=== PATIENT | female | born 1950 | race Caucasian/White ===

== ENCOUNTER 2016-11-30 08:06 | Emergency (ER) | payer MEDICARE ==
[~2016-11-30] VITALS: Ht 157.5 cm; Wt 44.5 kg
[2016-11-30 08:19] VITALS: BP 138/68
[2016-11-30] MEDS ORDERED: SULF1TAB24 PO (08:37)
--- NOTE | 2016-11-30 08:37 | PHYS DOC ---
Past History Past Medical History: Diabetes Alcohol Use: None Drug Use: None Adult General Chief Complaint Chief Complaint: TOE PROBLEM HPI HPI Patient is a 66-year-old female diabetic who presents with an infection of the right third toe. The patient was cutting her toenails last week and she accidentally cut into the skin on her toe. It has become red. Patient states she lost the tip of her left toe 2 or 3 years ago after an infection and she wants to avoid that. Patient does have an appointment to see the biology manager on December 11. Patient denies fever or chills, denies vomiting. She feels fine except for her toe. Allergic to penicillin, she "quit breathing" as a child when she took penicillin Review of Systems Review of Systems Constitutional: Denies fever or chills [] GI: Denies nausea or vomiting Allergies Allergies Allergies Coded Allergies Type Severity Reaction Last Updated Verified codeine Allergy Mild 11/30/16 Yes Uncoded Allergies Type Severity Reaction Last Updated Verified PENCILLIN Allergy Mild 11/30/16 Physical Exam Physical Exam Constitutional: Well developed, well nourished, no acute distress, non-toxic appearance. Alert, mentating normally, appears entirely nontoxic. HENT: Normocephalic, atraumatic, bilateral external ears normal, nose normal. [ ] Eyes: conjunctiva normal, no discharge. [] Neck: Normal range of motion, no stridor. [] Skin: Warm, dry, no erythema, no rash. [] Extremities: Right lower: The third toe is moderately swollen and red in color. There is a wound on the distal aspect near the toenail that is not draining, appears to be healing, and has a small scab. The tip of the toe was not fluctuant. It does not appear to have any abscess or pus anywhere. The redness is limited to the toe but there is some very mild small amount of streaking of very light pink on the dorsal aspect of the foot about mcc up. The foot is not swollen, not warm, not red. Other toes are unremarkable. Neurologic: Alert and oriented X 3, normal motor function, no focal deficits noted. [] Current Patient Data Vital Signs Vital Signs Date Time Temp Pulse Resp B/P (MAP) Pulse Ox O2 Delivery O2 Flow Rate FiO2 11/30/16 08:19 97.5 98 18 98 Room Air EKG EKG [] Radiology/Procedures Radiology/Procedures [] Course & Med Decision Making Course & Med Decision Making Pertinent Labs and Imaging studies reviewed. (See chart for details) 66-year-old diabetic female presents with cellulitis of the right third toe. This started with an injury sustained by cutting her toenails. I don't believe at this time she has a diabetic foot ulcer, it looks more like a simple cellulitis. The patient is entirely nontoxic. She will be able to comply with oral antibiotics and elevation. I discussed the importance of that. She does have a follow-up appointment with podiatry scheduled for December 11. Patient is comfortable with outpatient treatment and she understands return precautions. Emphasized nose. I believe the patient is stable for discharge. She does state a penicillin allergy, so I will treat her with Bactrim for MRSA and general cellulitis coverage. [] Dragon Disclaimer Dragon Disclaimer This chart was dictated in whole or in part using Voice Recognition software in a busy, high-work load, and often noisy Emergency Department environment. It may contain unintended and wholly unrecognized errors or omissions. Departure Departure: Impression: Primary Impression: Cellulitis of third toe, right Additional Impression: Diabetes mellitus type 2 in nonobese Disposition: HOME, SELF-CARE Condition: STABLE Referrals: ALEJANDRO GLASS MD (PCP) Patient Instructions: Cellulitis, [id number], Diabetes and Foot Care Additional Instructions: We will start you on an antibiotic for 2 weeks,I want to continue that until you see the biology manager. When you see the biology manager, he may U stop the antibiotic, or he may have you continue longer, depending on how your toe is looking. As we discussed, as much as possible, stay off of your foot and keep it elevated for at least the next 2-3 days. The more swelling you get, it's harder for the infection to heal because the blood supply to the tissue is not as good. Be sure to protect your toe from further injury. If you feel worse, if you have fever, chills, or other vomiting, return to emergency, you might need to be admitted to the hospital for IV antibiotics. Be sure to keep your scheduled appointment with the biology manager. Talk to the biology manager about whether you should have your toenails cut monthly by the biology manager. Scripts Sulfamethoxazole/Trimethoprim (BACTRIM DS TABLET) 1 Each Tablet 1 TAB PO BID for toe infection, #28 TAB Drink lots of fluids while you are on this medication Prov: JACE DIAZ MD 11/30/16 Problem Qualifiers JACE DIAZ MD Nov 30, 2016 08:37
== END 2016-11-30 08:48 | disposition home or self-care (01) ==
LOC: ER 08:06
DX: L03.031 Cellulitis of right toe (principal); E11.9 Type 2 diabetes mellitus without complications; Z88.5 Allergy status to narcotic agent
CPT/HCPCS: 99284-25

== ENCOUNTER 2017-01-17 17:10 | Emergency (ER) | payer MEDICARE ==
[~2017-01-17] VITALS: Ht 157.5 cm; Wt 44.5 kg
[~2017-01-17 17:10] MED LIST: SULF1TAB24 PO
[2017-01-17] MEDS ORDERED: IPRATRPIUM/ALBUTEROL 0.5/2.5MG 3 ML NEBU. NEB ONE (18:45)
[2017-01-17 19:15] LABS: BASO % 1 % (0-3); EOS # 0.1 x10^3/uL (0.0-0.7); EOS % 1 % (0-3); HEMATOCRIT 37.4 % (36.0-47.0); HEMOGLOBIN 12.4 g/dL (12.0-15.5); LYMPH # 2.1 x10^3/uL (1.0-4.8); LYMPH % 37 % (24-48); MEAN CORPUSCULAR HEMOGLOBIN 31 pg (25-35); MEAN CORPUSCULAR HGB CONC 33 g/dL (31-37); MEAN CORPUSCULAR VOLUME 93 fL (79-100); MONO # 0.3 x10^3/uL (0.0-1.1); MONO % 5 % (0-9); NEUT # 3.1 x10^3uL (1.8-7.7); NEUT % 56 % (31-73); PLATELET COUNT 195 x10^3/uL (140-400); RED BLOOD COUNT 4.04 x10^6/uL (3.50-5.40); RED CELL DISTRIBUTION WIDTH 13.3 % (11.5-14.5); WHITE BLOOD COUNT 5.6 x10^3/uL (4.0-11.0)
[2017-01-17 19:42] LABS: ALBUMIN 3.4 g/dL (3.4-5.0); CALCIUM 8.8 mg/dL (8.5-10.1); CREATININE 1.1 mg/dL (0.6-1.0); DIRECT BILIRUBIN 0.1 mg/dL (0.0-0.2); GFR 49.4; POTASSIUM 4.4 mmol/L (3.5-5.1); TOTAL BILIRUBIN 0.2 mg/dL (0.2-1.0); TOTAL PROTEIN 6.5 g/dL (6.4-8.2)
[2017-01-17 19:59] LABS: BILIRUBIN,URINE NEG (NEG); CLARITY,URINE CLEAR; COLOR,URINE COLORLESS; GLUCOSE,URINE >=1000 mg/dL (NEG)
[2017-01-17 20:00] LABS: NITRITE,URINE NEG (NEG); UROBILINOGEN,URINE 0.2 mg/dL (0.2 mg/dL)
[2017-01-17 20:01] LABS: BACTERIA,URINE FEW /HPF (0-FEW); SQUAMOUS EPITHELIAL CELL,UR MOD /LPF
[2017-01-17 20:04] LABS: YEAST,URINE PRESENT /HPF
[2017-01-17 20:19] VITALS: BP 128/97
[2017-01-17] MEDS ORDERED: AZIT250T PO (20:40)
--- NOTE | 2017-01-17 20:40 | PHYS DOC ---
Past History Past Medical History: Diabetes, High Cholesterol Past Surgical History: No Surgical History Alcohol Use: None Drug Use: None Adult General Chief Complaint Chief Complaint: SHORTNESS OF BREATH HPI HPI 66-year-old female presenting to the emergency department with shortness of breath and cough and cold symptoms for the last week. She feels congested and states that it has "moved into her chest". She denies any fevers. Her cough is not productive. The patient lungs. Duration intermittent. No alleviating factors present. She denies unilateral leg swelling hemoptysis or personal history of blood clotting disorders. She denies recent immobilization or surgery. Review of systems is negative for neck stiffness or severe headache vision changes abdominal pain or chest pain (nursing note states 'heaviness' in chest. I clarified this with the pt, she denies 'heaviness' in the chest. She reports that she has congestion but denies pressure or pain.) ED course: 58-year-old female presenting to the emergency department with cough and shortness of breath over the past week. She is afebrile with mild chronic hypertension. Saturating well on room air. On examination, she is comfortable appearing and her work of breathing is normal. Lungs are clear to auscultation bilaterally. The remainder the exam is unremarkable. EKG obtained and reviewed by myself shows sinus rhythm with a regular rate. ST segments congruent. Not suggestive of ACS. Troponin negative. Otherwise blood work shows elevated glucose. The patient has a history of diabetes for which she takes insulin. She has noticed her blood sugars more elevated recently. No evidence of acidosis which would be fairly atypical for type 2 diabetes. Patient feels comfortable managing her hyperglycemia at home. Chest x-ray obtained and reviewed by myself compared to previous on September 082010. No obvious infiltrates. Otherwise unremarkable. She was given oral azithromycin to follow-up with her doctor next few days. The patient was then discharged home in stable condition to follow up with their primary care physician over the next 2-3 days. They were to return if their symptoms worsened or if they were concerned for any reason. Face-to- face discharge instructions and return precautions were given. Patient's questions were answered to their satisfaction. Patient is comfortable plan. Review of Systems Review of Systems Constitutional: Denies fever or chills [] Eyes: Denies change in visual acuity, redness, or eye pain [] HENT: Denies nasal congestion or sore throat [] Respiratory: Denies cough or shortness of breath [] Cardiovascular: No additional information not addressed in HPI [] GI: Denies abdominal pain, nausea, vomiting, bloody stools or diarrhea [] : Denies dysuria or hematuria [] Musculoskeletal: Denies back pain or joint pain [] Integument: Denies rash or skin lesions [] Neurologic: Denies headache, focal weakness or sensory changes [] Endocrine: Denies polyuria or polydipsia [] All other systems were reviewed and found to be within normal limits, except as documented in this note. Current Medications Current Medications Current Medications Medications (Trade) Dose Ordered Sig/Kacey Start Time Stop Time Status Last Admin Dose Admin Albuterol/ Ipratropium (Duoneb) 3 ml 1X ONCE 01/17/17 18:45 01/17/17 18:46 DC 01/17/17 19:02 3 ML Fluconazole (Diflucan) 100 mg 1X ONCE 01/17/17 21:00 01/17/17 21:01 01/17/17 20:34 100 MG Allergies Allergies Allergies Coded Allergies Type Severity Reaction Last Updated Verified Penicillins Allergy Mild 11/30/16 Yes codeine Allergy Mild 11/30/16 Yes Physical Exam Physical Exam Constitutional: Well developed, well nourished, no acute distress, non-toxic appearance. [] HENT: Normocephalic, atraumatic, bilateral external ears normal, oropharynx moist, no oral exudates, nose normal. [] Eyes: PERRLA, EOMI, conjunctiva normal, no discharge. [] Neck: Normal range of motion, no tenderness, supple, no stridor. [] Cardiovascular:Heart rate regular rhythm, no murmur [] Lungs & Thorax: Bilateral breath sounds clear to auscultation [] Abdomen: Bowel sounds normal, soft, no tenderness, no masses, no pulsatile masses. [] Skin: Warm, dry, no erythema, no rash. [] Back: No tenderness, no CVA tenderness. [] Extremities: No tenderness, no cyanosis, no clubbing, ROM intact, no edema. [] Neurologic: Alert and oriented X 3, normal motor function, normal sensory function, no focal deficits noted. [] Psychologic: Affect normal, judgement normal, mood normal. [] Current Patient Data Vital Signs Vital Signs Date Time Temp Pulse Resp B/P (MAP) Pulse Ox O2 Delivery O2 Flow Rate FiO2 01/17/17 19:02 98 Room Air 01/17/17 17:15 97.5 92 20 Lab Results Laboratory Tests Test 01/17/17 18:55 01/17/17 19:00 White Blood Count 5.6 x10^3/uL (4.0-11.0) Red Blood Count 4.04 x10^6/uL (3.50-5.40) Hemoglobin 12.4 g/dL (12.0-15.5) Hematocrit 37.4 % (36.0-47.0) Mean Corpuscular Volume 93 fL (79-100) Mean Corpuscular Hemoglobin 31 pg (25-35) Mean Corpuscular Hemoglobin Concent 33 g/dL (31-37) Red Cell Distribution Width 13.3 % (11.5-14.5) Platelet Count 195 x10^3/uL (140-400) Neutrophils (%) (Auto) 56 % (31-73) Lymphocytes (%) (Auto) 37 % (24-48) Monocytes (%) (Auto) 5 % (0-9) Eosinophils (%) (Auto) 1 % (0-3) Basophils (%) (Auto) 1 % (0-3) Neutrophils # (Auto) 3.1 x10^3uL (1.8-7.7) Lymphocytes # (Auto) 2.1 x10^3/uL (1.0-4.8) Monocytes # (Auto) 0.3 x10^3/uL (0.0-1.1) Eosinophils # (Auto) 0.1 x10^3/uL (0.0-0.7) Basophils # (Auto) 0.0 x10^3/uL (0.0-0.2) Sodium Level 137 mmol/L (136-145) Potassium Level 4.4 mmol/L (3.5-5.1) Chloride Level 100 mmol/L (98-107) Carbon Dioxide Level 28 mmol/L (21-32) Anion Gap 9 (6-14) Blood Urea Nitrogen 18 mg/dL (7-20) Creatinine 1.1 mg/dL (0.6-1.0) H Estimated GFR (Cockcroft-Gault) 49.4 Glucose Level 581 mg/dL (70-99) *H Lactic Acid Level 1.0 mmol/L (0.4-2.0) Calcium Level 8.8 mg/dL (8.5-10.1) Total Bilirubin 0.2 mg/dL (0.2-1.0) Direct Bilirubin 0.1 mg/dL (0.0-0.2) Aspartate Amino Transferase (AST) 13 U/L (15-37) L Alanine Aminotransferase (ALT) 21 U/L (14-59) Alkaline Phosphatase 167 U/L (46-116) H Troponin I Quantitative < 0.017 ng/mL (0-0.055) DS-Fkm-C-Type Natriuretic Peptide 223 pg/mL (0-124) H Total Protein 6.5 g/dL (6.4-8.2) Albumin 3.4 g/dL (3.4-5.0) Lipase 122 U/L (73-393) Urine Collection Type Unknown Urine Color Colorless Urine Clarity Clear Urine pH 5.0 Urine Specific [place] <=1.005 Urine Protein Neg (NEG-TRACE) Urine Glucose (UA) >=1000 mg/dL (NEG) Urine Ketones (Stick) Neg mg/dL (NEG) Urine Blood Neg (NEG) Urine Nitrite Neg (NEG) Urine Bilirubin Neg (NEG) Urine Urobilinogen Dipstick 0.2 mg/dL (0.2 mg/dL) Urine Leukocyte Esterase Neg (NEG) Urine RBC 1-2 /HPF (0-2) Urine WBC 1-4 /HPF (0-4) Urine Squamous Epithelial Cells Mod /LPF Urine Bacteria Few /HPF (0-FEW) Urine Yeast Present /HPF EKG EKG [] Radiology/Procedures Radiology/Procedures [] Course & Med Decision Making Course & Med Decision Making Pertinent Labs and Imaging studies reviewed. (See chart for details) [] Dragon Disclaimer Dragon Disclaimer This electronic medical record was generated, in whole or in part, using a voice recognition dictation system. Departure Departure: Impression: Primary Impression: Cough Additional Impression: SOB (shortness of breath) Disposition: 01 HOME, SELF-CARE Condition: STABLE Referrals: ALEJANDRO GLASS MD (PCP) Patient Instructions: Shortness of Breath Additional Instructions: Thank you for allowing us to participate in your care today. Followup with your primary care physician in 3 days if your symptoms do not improve. Call your Primary Doctor tomorrow and inform them of your visit today. If you do not have a primary care provider you can ask for a list of our primary care providers. Return to the emergency department you have any new or concerning findings. This should be evaluated by the primary care physician and any necessary consulting services for continued management within a few days after discharge. Return to emergency room if you have any new or concerning symptoms including but not limited to fever, chills, nausea, vomiting, intractable pain, any new rashes, chest pain, shortness of air, uncontrolled bleeding, difficulty breathing, and/or vision loss. Scripts Azithromycin (ZITHROMAX) 250 Mg Tablet 1 PKG PO UD, #1 PKG Prov: JAIME MEJIA MD 01/17/17 Problem Qualifiers JAIME MEJIA MD Jan 17, 2017 20:40
[2017-01-17] MEDS ORDERED: FLUCONAZOLE 100 MG TABLET. PO ONE (21:00)
--- NOTE | 2017-01-17 23:35 | EKG ---
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
--- NOTE | 2017-01-18 08:36 | RAD ---
CHEST AP ONLY Clinical Indication: soa Comparison: September 08, 2010 Technique: Frontal views of the chest are obtained. Findings: No focal consolidation, pleural effusion or pneumothorax is seen. Mild biapical scarring is redemonstrated. Cardiomediastinal silhouette is within normal limits of size. Visualized osseous structures and overlying soft tissues demonstrate no acute finding. IMPRESSION: No focal consolidation or acute radiographic finding.
== END 2017-01-17 20:50 | disposition home or self-care (01) ==
LOC: ER 17:10
DX: R06.02 Shortness of breath (principal); R05 Cough; R09.81 Nasal congestion; E11.65 Type 2 diabetes mellitus with hyperglycemia; E78.00 Pure hypercholesterolemia, unspecified; I10 Essential (primary) hypertension; Z79.4 Long term (current) use of insulin; Z88.0 Allergy status to penicillin; Z88.5 Allergy status to narcotic agent
CPT/HCPCS: 36415; 71010; 80048; 80076; 81001; 83605; 83690; 83880; 84484; 85025; 93005; 94640; 99285; J7620

== ENCOUNTER 2017-02-23 09:37 | Inpatient (IN) | payer MEDICARE ==
[~2017-02-23] VITALS: Ht 152.4 cm; Wt 40.5 kg
[2017-02-23] VITALS (10 sets, daily range): BP systolic 83–109; BP diastolic 38–66
[~2017-02-23 09:37] MED LIST changes: +AZIT250T PO
[2017-02-23] MEDS ORDERED: 0.9 % SODIUM CHLORIDE 10 ML DISP.SYRIN. IV PRN (10:15)
--- NOTE | 2017-02-23 10:16 | PHYS DOC ---
Past History Past Medical History: Diabetes, High Cholesterol Past Surgical History: No Surgical History Smoking: Non-smoker Alcohol Use: None Drug Use: None Adult General Chief Complaint Chief Complaint: NAUSEA/VOMITING/[facility] HPI 66-year-old female patient complaining of frequent episodes of vomiting and diarrhea for the last 4 days and states she had has 4 or 5 episodes of nonbloody vomiting and diarrhea every day that gradually getting worse. Patient denies abdominal pain and fever and chills and chest pain and shortness of breath and sick contact. Patient complaining of decrease of urine output. Patient states she thinks her blood sugars high but didn't check her blood sugar. Patient is a poor historian. Review of Systems Review of Systems Constitutional: Denies fever or chills, reports weakness [] Eyes: Denies change in visual acuity, redness, or eye pain [] HENT: Denies nasal congestion or sore throat [] Respiratory: Denies cough or shortness of breath [] Cardiovascular: No additional information not addressed in HPI [] GI: Denies abdominal pain, bloody stools, reports nausea and vomiting and diarrhea : Denies dysuria or hematuria [] Musculoskeletal: Denies back pain or joint pain [] Integument: Denies rash or skin lesions [] Neurologic: Denies headache, focal weakness or sensory changes, reports dizziness and generalized weakness[] Endocrine: Denies polyuria or polydipsia [] All other systems were reviewed and found to be within normal limits, except as documented in this note. Allergies Allergies Allergies Coded Allergies Type Severity Reaction Last Updated Verified Penicillins Allergy Mild 11/30/16 Yes codeine Allergy Mild 11/30/16 Yes Physical Exam Physical Exam Constitutional: Moderate distress,thin patient, non-toxic appearance. [] HENT: Normocephalic, atraumatic, bilateral external ears normal, oropharynx dry , no oral exudates, nose normal. [] Eyes: PERRLA, EOMI, conjunctiva normal, no discharge. [] Neck: Normal range of motion, no tenderness, supple, no stridor. [] Cardiovascular :Tachycardia, no murmur [] Lungs & Thorax: Bilateral breath sounds clear to auscultation [] Abdomen: Bowel sounds normal, soft, no tenderness, no masses, no pulsatile masses. [] Skin: Warm, dry, no erythema, no rash. [] Back: No tenderness, no CVA tenderness. [] Extremities: No tenderness, no cyanosis, no clubbing, ROM intact, no edema. [] Neurologic: Alert and oriented X 3, normal motor function, normal sensory function, no focal deficits noted. [] Psychologic: Affect normal, judgement normal, mood normal. [] EKG EKG [EKG interpreted by me. EKG at 1017 showed sinus tachycardia at rate of 108, axis deviation, right ventricular hypertrophy Radiology/Procedures Radiology/Procedures [] Course & Med Decision Making Course & Med Decision Making Pertinent Labs studies reviewed. (See chart for details) Evaluation of patient in ER showed 66-year-old female patient with history of diabetes mellitus presented to ER with nausea and vomiting and diarrhea for 4 days. Patient had moderate distress and dry oral mucosa at arrival to ER without Hypotension or fever. Blood sugar was more than 500 with pH of 7.17 and bicarbonate of 9 in ABG. Patient treated with 2 L of IV fluid and poorness of insulin and insulin drip at rate of 4 units per hour and Zofran. Patient felt better and blood sugar gradually decreased to 410. Lactic acid was 3.4 that was related to acidemia and antibiotic was not started. Plan to repeat lactic acid in 4 hours. Plan to admit patient to ICU with diagnosis of DKA. was consulted at 1140 and accepted the admission. Patient had elevation of phosphorous and magnesium and plan to repeat electrolytes later on after hydration and start treatment if needed. UA is pending. Dragon Disclaimer Dragon Disclaimer This electronic medical record was generated, in whole or in part, using a voice recognition dictation system. Departure Departure: Impression: Primary Impression: DKA (diabetic ketoacidoses) Additional Impressions: Severe dehydration Acute gastroenteritis Renal insufficiency Elevated lactic acid level Leukocytosis Hypokalemia Disposition: ADMITTED INPATIENT (At 1141) Admitting Physician: Rosenda Gordon Condition: GUARDED Referrals: ALEJANDRO GLASS MD (PCP) Critical Care Time Critical care time was [90] minutes exclusive of procedures. Problem Qualifiers RM HGIH MD Feb 23, 2017 10:16
[2017-02-23] MEDS ORDERED: IV NORMAL SALINE 1,000ML 1,000 ML IV SCH ×3 (10:30→14:00)
[2017-02-23] MEDS ORDERED: ONDANSETRON PF 4 MG/2 ML VIAL. IV ONE (10:30)
--- NOTE | 2017-02-23 10:41 | EKG ---
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
[2017-02-23] MEDS ORDERED: INSULIN REGULAR 100 UNIT/ML 10ML VIAL. IV ONE (10:45)
[2017-02-23 10:59] LABS: BASO # 0.1 x10^3/uL (0.0-0.2); BASO % 1 % (0-3); EOS % 0 % (0-3); HEMATOCRIT 41.3 % (36.0-47.0); HEMOGLOBIN 12.9 g/dL (12.0-15.5); LYMPH % 8 % (24-48); MEAN CORPUSCULAR HEMOGLOBIN 31 pg (25-35); MEAN CORPUSCULAR HGB CONC 31 g/dL (31-37); MEAN CORPUSCULAR VOLUME 98 fL (79-100); MONO # 0.6 x10^3/uL (0.0-1.1); MONO % 5 % (0-9); NEUT # 10.9 x10^3uL (1.8-7.7); NEUT % 87 % (31-73); PLATELET COUNT 212 x10^3/uL (140-400); RED BLOOD COUNT 4.21 x10^6/uL (3.50-5.40); RED CELL DISTRIBUTION WIDTH 14.3 % (11.5-14.5); WHITE BLOOD COUNT 12.5 x10^3/uL (4.0-11.0)
[2017-02-23] MEDS ORDERED: INSULIN REGULAR 150 UNIT in 0.9 % SODIUM CHLORIDE 150ML 150 ML IV ONE (11:00)
[2017-02-23] MEDS ORDERED: IV NORMAL SALINE 1,000ML 1,000 ML IV ONE (11:00)
[2017-02-23 11:04] LABS: ALBUMIN 3.5 g/dL (3.4-5.0); ALBUMIN/GLOBULIN RATIO 0.9 (1.0-1.7); CALCIUM 8.5 mg/dL (8.5-10.1); CREATININE 2.1 mg/dL (0.6-1.0); GFR 23.4; POTASSIUM 5.3 mmol/L (3.5-5.1); TOTAL BILIRUBIN 0.5 mg/dL (0.2-1.0); TOTAL PROTEIN 7.3 g/dL (6.4-8.2)
[2017-02-23 11:15] LABS: MAGNESIUM 2.7 mg/dL (1.8-2.4); PHOSPHORUS 7.7 mg/dL (2.6-4.7)
[2017-02-23] MEDS ORDERED: ONDANSETRON PF 4 MG/2 ML VIAL. IV PRN (11:45)
[2017-02-23] MEDS ORDERED: INSULIN REGULAR 150 UNIT in 0.9 % SODIUM CHLORIDE 150ML 150 ML IV PRN (14:00)
[2017-02-23] MEDS ORDERED: IV DEXTROSE 5 %-0.45 % NACL 1,000 ML IV SCH (14:00)
[2017-02-23 14:02] LABS: BGAS PH 7.18 (7.35-7.45)
[2017-02-23 14:09] LABS: BILIRUBIN,URINE NEG (NEG); CLARITY,URINE CLEAR; COLOR,URINE STRAW; GLUCOSE,URINE 500 mg/dL (NEG)
[2017-02-23 14:10] LABS: NITRITE,URINE NEG (NEG); UROBILINOGEN,URINE 0.2 mg/dL (0.2 mg/dL)
[2017-02-23 14:11] LABS: BACTERIA,URINE 0 /HPF (0-FEW); HYALINE CASTS, URINE OCC /HPF; SQUAMOUS EPITHELIAL CELL,UR FEW /LPF
[2017-02-23] MEDS ORDERED: METO-239 PO (14:30)
[2017-02-23] MEDS ORDERED: PRAV40TA2 PO (14:30)
[2017-02-23] MEDS ORDERED: INSU100I13 SQ (14:30)
[2017-02-23] MEDS ORDERED: INSU100I11 SQ (14:30)
[2017-02-23 15:16] LABS: ALBUMIN/GLOBULIN RATIO 0.9 (1.0-1.7); CALCIUM 7.9 mg/dL (8.5-10.1); CREATININE 1.6 mg/dL (0.6-1.0); GFR 32.1; MAGNESIUM 2.2 mg/dL (1.8-2.4); POTASSIUM 4.5 mmol/L (3.5-5.1); TOTAL BILIRUBIN 0.4 mg/dL (0.2-1.0); TOTAL PROTEIN 6.2 g/dL (6.4-8.2)
--- NOTE | 2017-02-23 20:14 | HP ---
ADMIT DATE: 02/23/2017 REASON FOR ADMISSION: DKA. HISTORY OF PRESENT ILLNESS: This is a 66-year-old female who came to the Emergency Room complaining of nausea, vomiting, and diarrhea for the last 3-4 days, also sore throat, and runny nose. The patient was seen by Dr. Bravo at [facility] for her diabetes. PAST MEDICAL HISTORY: Diabetes since in her 20s, unknown whether this is type 1 or type 2 1. Also, diabetic neuropathy, history of cellulitis of the toe, toe amputation, frequent bouts of nausea and throwing up. She also had a sinus infection 2-3 years ago and was found down on her bed and CPR was done and she was in the coma for some time. PAST SURGICAL HISTORY: Amputation of the toe. HABITS OR SOCIAL HISTORY: The patient lives in her own home. She has a longstanding boyfriend. She still drives. She does not smoke, no alcohol. MEDICATIONS: NovoLog 8 units before meals, Lantus 18 units at bedtime, metoprolol 12.5 mg a day, and pravastatin 20 mg a day. REVIEW OF SYSTEMS: Positive for scratchy throat, runny nose, frequent nausea and vomiting. No urinary complaints. No bowel complaints. Weight loss of about 10 pounds. Please note the patient is a poor historian. Denies fever or chills. OBJECTIVE: VITAL SIGNS: Blood pressure is 86/66, was 100/51. Her map is 73. Pulse 98, pulse ox 99% on room air, temperature 97.4. HEENT: The patient's external ear canals are normal. Her eyes were clear. Posterior pharynx clear without exudate. NECK: Supple, without adenopathy. LUNGS: Clear in all colindres. CARDIOVASCULAR: Regular rhythm and rate. ABDOMEN: Soft. Bowel sounds are positive. No particular tenderness. EXTREMITIES: Without edema. LABORATORY DATA: Admitting blood sugar 639. Sodium 135, potassium 5.3, carbon dioxide 9. ABG with pH of 7.18 with a carbon dioxide of 25. CBC: White count is 12.5 with a left shift ____ bandemia. Serum acetone positive. Lactic acid is 3.4, repeat is pending. Urinalysis is negative. ASSESSMENT: 1. Diabetic ketoacidosis. 2. Recurrent nausea and vomiting. 3. Systemic inflammatory response syndrome. 4. Lactic acidosis, probably related to the diabetic ketoacidosis. We will repeat. 5. Type 2 diabetes, appears to be poorly controlled. 6. Suspect gastroparesis. 7. Underweight for height. PLAN: Dietary consult. Insulin, diabetic protocol. IV fluids. Monitor closely as she has had one blood pressure drop. MELCHOR ALEXANDER DO DR: JENSEN/nina JOB#: [id number] / [id number]
[2017-02-23] MEDS: POTASSIUM CL 40MEQ D5-0.45NACL 1,000 ML IV SCH (21:02)
[2017-02-24] VITALS (9 sets, daily range): BP systolic 82–124; BP diastolic 41–59
[2017-02-24] MEDS: POTASSIUM CL 40MEQ D5-0.45NACL 1,000 ML IV SCH (02:58)
[2017-02-24 06:47] LABS: CALCIUM 7.8 mg/dL (8.5-10.1); CREATININE 0.9 mg/dL (0.6-1.0); GFR 62.3; POTASSIUM 5.1 mmol/L (3.5-5.1)
[2017-02-24 07:15] LABS: HEMOGLOBIN 10.7 g/dL (12.0-15.5); RED BLOOD COUNT 3.61 x10^6/uL (3.50-5.40); WHITE BLOOD COUNT 9.1 x10^3/uL (4.0-11.0)
[2017-02-24 07:16] LABS: MEAN CORPUSCULAR HEMOGLOBIN 30 pg (25-35); MEAN CORPUSCULAR HGB CONC 32 g/dL (31-37); MEAN CORPUSCULAR VOLUME 91 fL (79-100); PLATELET COUNT 165 x10^3/uL (140-400); RED CELL DISTRIBUTION WIDTH 13.8 % (11.5-14.5)
[2017-02-24] MEDS: IV NORMAL SALINE 1,000ML 1,000 ML IV SCH ×2 (07:52→11:54)
[2017-02-24 08:36] LABS: % BANDS 2 % (0-9); % BASOS 1 % (0-3); % EOS 2 % (0-5); % LYMPHS 20 % (24-48); % MONOS 4 % (0-10); % SEGS 71 % (35-66)
[2017-02-24 08:37] LABS: MICROCYTOSIS SLIGHT; PLT ESTIMATE ADEQUATE (ADEQUATE)
[2017-02-24] MEDS ORDERED: PNEUMOC CONJ VACC 23-VALENT 0.5 ML VIAL. VAX IM ONE (09:00)
[2017-02-24] MEDS ORDERED: DEXTROSE 50% 25 GM / 50ML DISP.SYRIN. IV PRN (10:45)
--- NOTE | 2017-02-24 11:06 | RAD ---
Indication: Gastroparesis, chronic nausea. Technique: After ingestion of solid meal mixed with 2.2 mCi of technetium 99m sulfur colloid, anterior planar images of the stomach were obtained at multiple time intervals. Comparison: None Findings: The T-1/2 for emptying is approximately 151.50 minutes which is prolonged. Approximately 85-90% of activity remaining in the stomach at 60 minutes. Impression: Delayed gastric emptying with T-1/2 of 151 minutes.
[2017-02-24] MEDS ORDERED: INSULIN ASPART 300 UNITS/3 ML INSULN.PEN SQ SCH (11:30)
[2017-02-24] MEDS ORDERED: METOCLOPRAMIDE 5 MG TABLET PO SCH ×2 (12:30→16:30)
[2017-02-24] MEDS ORDERED: INSU100I11 SQ (13:02)
[2017-02-24] MEDS ORDERED: INSU100I13 SQ (13:02)
[2017-02-24] MEDS ORDERED: METO10TA81 PO ×3 (13:13→13:15)
[2017-02-24] MEDS ORDERED: METO5TAB55 PO (13:13)
[2017-02-24] MEDS ORDERED: GABA-585 PO (13:16)
--- NOTE | 2017-02-24 13:18 | PDOC3 ---
Discharge Summary Visit Information Date of Admission: Feb 23, 2017 Date of Discharge: Feb 24, 2017 Final Diagnosis Problems Medical Problems: (1) Acute gastroenteritis Status: Acute (2) DKA (diabetic ketoacidoses) Status: Acute (3) Elevated lactic acid level Status: Acute (4) Hypokalemia Status: Acute (5) Leukocytosis Status: Acute (6) Renal insufficiency Status: Acute (7) Severe dehydration Status: Acute NT: 1. Diabetic ketoacidosis. 2. Recurrent nausea and vomiting. 3. Systemic inflammatory response syndrome. 4. Lactic acidosis, probably related to the diabetic ketoacidosis. We will repeat. 5. Type 2 diabetes, POORLY [id number]% 6. gastroparesis. 7. Underweight for height. Problems: Brief Hospital Course Allergies Allergies Coded Allergies Type Severity Reaction Last Updated Verified Penicillins Allergy Mild 11/30/16 Yes codeine Allergy Mild 11/30/16 Yes Vital Signs Vital Signs Date Time Temp Pulse Resp B/P (MAP) Pulse Ox O2 Delivery O2 Flow Rate FiO2 02/24/17 10:57 98.2 93 32 124/59 (80) 96 Room Air 02/23/17 18:54 2.0 Lab Results Laboratory Tests Test 02/23/17 10:35 02/23/17 10:39 02/23/17 11:05 02/23/17 12:42 White Blood Count 12.5 x10^3/uL (4.0-11.0) Red Blood Count 4.21 x10^6/uL (3.50-5.40) Hemoglobin 12.9 g/dL (12.0-15.5) Hematocrit 41.3 % (36.0-47.0) Mean Corpuscular Volume 98 fL (79-100) Mean Corpuscular Hemoglobin 31 pg (25-35) Mean Corpuscular Hemoglobin Concent 31 g/dL (31-37) Red Cell Distribution Width 14.3 % (11.5-14.5) Platelet Count 212 x10^3/uL (140-400) Neutrophils (%) (Auto) 87 % (31-73) Lymphocytes (%) (Auto) 8 % (24-48) Monocytes (%) (Auto) 5 % (0-9) Eosinophils (%) (Auto) 0 % (0-3) Basophils (%) (Auto) 1 % (0-3) Neutrophils # (Auto) 10.9 x10^3uL (1.8-7.7) Lymphocytes # (Auto) 1.0 x10^3/uL (1.0-4.8) Monocytes # (Auto) 0.6 x10^3/uL (0.0-1.1) Eosinophils # (Auto) 0.0 x10^3/uL (0.0-0.7) Basophils # (Auto) 0.1 x10^3/uL (0.0-0.2) Sodium Level 135 mmol/L (136-145) Potassium Level 5.3 mmol/L (3.5-5.1) Chloride Level 94 mmol/L (98-107) Carbon Dioxide Level 9 mmol/L (21-32) Anion Gap 32 (6-14) Blood Urea Nitrogen 53 mg/dL (7-20) Creatinine 2.1 mg/dL (0.6-1.0) Estimated GFR (Cockcroft-Gault) 23.4 BUN/Creatinine Ratio 25 (6-20) Glucose Level 639 mg/dL (70-99) Glucose (Fingerstick) 564 mg/dL (70-99) 410 mg/dL (70-99) Hemoglobin A1c 13.0 % (4.8-5.6) Calcium Level 8.5 mg/dL (8.5-10.1) Phosphorus Level 7.7 mg/dL (2.6-4.7) Magnesium Level 2.7 mg/dL (1.8-2.4) Total Bilirubin 0.5 mg/dL (0.2-1.0) Aspartate Amino Transf (AST/SGOT) 12 U/L (15-37) Alanine Aminotransferase (ALT/SGPT) 19 U/L (14-59) Alkaline Phosphatase 114 U/L (46-116) Troponin I Quantitative < 0.017 ng/mL (0-0.055) Total Protein 7.3 g/dL (6.4-8.2) Albumin 3.5 g/dL (3.4-5.0) Albumin/Globulin Ratio 0.9 (1.0-1.7) Lipase 43 U/L (73-393) Acetone Level Mod pos (NEG) Blood Gas pH 7.18 (7.35-7.45) Blood Gas PCO2 25 mmHg (35-45) Blood Gas PO2 107 mmHg (80-100) Blood Gas HCO3 9 mmol/L (22-26) Arterial Bld O2 Saturation (Calc) 97 % (92-99) FiO2 21 % Serum Osmolality 349 mOsm/Kg (279-304) Lactic Acid Level 3.4 mmol/L (0.4-2.0) Test 02/23/17 13:03 02/23/17 13:43 02/23/17 13:44 02/23/17 14:18 Glucose (Fingerstick) 414 mg/dL (70-99) 389 mg/dL (70-99) Urine Collection Type Unknown Urine Color Straw Urine Clarity Clear Urine pH 5.0 Urine Specific [place] 1.015 Urine Protein Neg (NEG-TRACE) Urine Glucose (UA) 500 mg/dL (NEG) Urine Ketones (Stick) >=160 mg/dL (NEG) Urine Blood Small (NEG) Urine Nitrite Neg (NEG) Urine Bilirubin Neg (NEG) Urine Urobilinogen Dipstick 0.2 mg/dL (0.2 mg/dL) Urine Leukocyte Esterase Neg (NEG) Urine RBC 1-2 /HPF (0-2) Urine WBC 1-4 /HPF (0-4) Urine Squamous Epithelial Cells Few /LPF Urine Bacteria 0 /HPF (0-FEW) Urine Hyaline Casts Occ /HPF Urine Mucus Slight /LPF Nasal Screen MRSA (PCR) Negative (Negative) Test 02/23/17 14:55 02/23/17 15:23 02/23/17 16:34 02/23/17 17:41 Sodium Level 140 mmol/L (136-145) Potassium Level 4.5 mmol/L (3.5-5.1) Chloride Level 103 mmol/L (98-107) Carbon Dioxide Level 17 mmol/L (21-32) Anion Gap 20 (6-14) Blood Urea Nitrogen 44 mg/dL (7-20) Creatinine 1.6 mg/dL (0.6-1.0) Estimated GFR (Cockcroft-Gault) 32.1 BUN/Creatinine Ratio 28 (6-20) Glucose Level 355 mg/dL (70-99) Lactic Acid Level 1.8 mmol/L (0.4-2.0) Calcium Level 7.9 mg/dL (8.5-10.1) Magnesium Level 2.2 mg/dL (1.8-2.4) Total Bilirubin 0.4 mg/dL (0.2-1.0) Aspartate Amino Transf (AST/SGOT) 11 U/L (15-37) Alanine Aminotransferase (ALT/SGPT) 19 U/L (14-59) Alkaline Phosphatase 95 U/L (46-116) Total Protein 6.2 g/dL (6.4-8.2) Albumin 3.0 g/dL (3.4-5.0) Albumin/Globulin Ratio 0.9 (1.0-1.7) Glucose (Fingerstick) 297 mg/dL (70-99) 221 mg/dL (70-99) 208 mg/dL (70-99) Test 02/23/17 19:51 02/23/17 20:44 02/23/17 21:41 02/23/17 23:01 Glucose (Fingerstick) 137 mg/dL (70-99) 95 mg/dL (70-99) 117 mg/dL (70-99) 155 mg/dL (70-99) Test 02/24/17 00:09 02/24/17 01:08 02/24/17 02:13 02/24/17 03:07 Glucose (Fingerstick) 99 mg/dL (70-99) 88 mg/dL (70-99) 104 mg/dL (70-99) 126 mg/dL (70-99) Test 02/24/17 04:04 02/24/17 05:11 02/24/17 05:59 02/24/17 06:21 Glucose (Fingerstick) 110 mg/dL (70-99) 114 mg/dL (70-99) 158 mg/dL (70-99) White Blood Count 9.1 x10^3/uL (4.0-11.0) Red Blood Count 3.61 x10^6/uL (3.50-5.40) Hemoglobin 10.7 g/dL (12.0-15.5) Hematocrit 33.0 % (36.0-47.0) Mean Corpuscular Volume 91 fL (79-100) Mean Corpuscular Hemoglobin 30 pg (25-35) Mean Corpuscular Hemoglobin Concent 32 g/dL (31-37) Red Cell Distribution Width 13.8 % (11.5-14.5) Platelet Count 165 x10^3/uL (140-400) Segmented Neutrophils % 71 % (35-66) Band Neutrophils % 2 % (0-9) Lymphocytes % 20 % (24-48) Monocytes % 4 % (0-10) Eosinophils % 2 % (0-5) Basophils % 1 % (0-3) Platelet Estimate Adequate (ADEQUATE) Microcytosis Slight Sodium Level 139 mmol/L (136-145) Potassium Level 5.1 mmol/L (3.5-5.1) Chloride Level 108 mmol/L (98-107) Carbon Dioxide Level 26 mmol/L (21-32) Anion Gap 5 (6-14) Blood Urea Nitrogen 26 mg/dL (7-20) Creatinine 0.9 mg/dL (0.6-1.0) Estimated GFR (Cockcroft-Gault) 62.3 Glucose Level 152 mg/dL (70-99) Calcium Level 7.8 mg/dL (8.5-10.1) Magnesium Level 2.0 mg/dL (1.8-2.4) Test 02/24/17 08:23 02/24/17 10:36 02/24/17 13:02 Glucose (Fingerstick) 168 mg/dL (70-99) 326 mg/dL (70-99) 193 mg/dL (70-99) Brief Hospital Course Ms. Wesley is a 66 old [sex] who presented with [ ] HISTORY OF PRESENT ILLNESS: This is a 66-year-old female who came to the Emergency Room complaining of nausea, vomiting, and diarrhea for the last 3-4 days, also sore throat, and runny nose. The patient was seen by Dr. Bravo at [facility] for her diabetes.SHE WAS ADMITTED WITH SEVERE DKA. SHE RESPONDED WELL TO THE INSULINN DRIP ;PROTOCOL. SHE WAS REHYDRATED. HER NAUSEA AND VOMITING RESOLVED. SHE HAD A GASTRIC EMPTYING STUDY SHOWING SIGNIFICANT GASTROPARESIS. SHE WILL BE TRIED ON REGLAN AT NIGHT AND PRN. HER HOME INSULIN DOSES WERE ADJUSTED AND SHE WAS STARTED ON GABAPENTIN FOR HER NEUROPATHY. Discharge Information Condition at Discharge: Improved Disposition/Orders: D/C to Home Dischare Medications Current Medications Sodium Chloride 1,000 ml @ 1,000 mls/hr Q1H IV Last administered on 02/23/17at 10:47; Start 02/23/17 at 10:30; Stop 02/23/17 at 11:29; Status DC Sodium Chloride (Normal Saline Flush) 10 ml QSHIFT PRN IV AFTER MEDS AND BLOOD DRAWS; Start 02/23/17 at 10:15 Ondansetron HCl (Zofran) 4 mg 1X ONCE IV Last administered on 02/23/17at 10:48; Start 02/23/17 at 10:30; Stop 02/23/17 at 10:33; Status DC Insulin Human Regular (NovoLIN R) 10 unit 1X ONCE IV Last administered on at 11:12; Start 02/23/17 at 10:45; Stop 02/23/17 at 10:48; Status DC Insulin Human Regular 150 unit/ Sodium Chloride 151.5 ml @ 0 mls/hr 1X ONCE IV Last administered on 02/23/17at 11:42; Start 02/23/17 at 11:00; Stop 02/23/17 at 11:01; Status DC Sodium Chloride 1,000 ml @ 1,000 mls/hr 1X ONCE IV Last administered on at 15:18; Start 02/23/17 at 11:00; Stop 02/23/17 at 11:59; Status DC Ondansetron HCl (Zofran) 4 mg PRN Q4HRS PRN IV NAUSEA/VOMITING; Start 02/23/17 at 11:45; Stop 02/24/17 at 11:44; Status DC Sodium Chloride 1,000 ml @ 200 mls/hr Q5H IV Last administered on 02/23/17at 15: 19; Start 02/23/17 at 12:00; Stop 02/23/17 at 17:34; Status DC Sodium Chloride 1,000 ml @ 0 mls/hr Q0M IV ; Start 02/23/17 at 14:00; Stop at 11:58; Status DC Dextrose/Sodium Chloride 1,000 ml @ 0 mls/hr Q0M IV ; Start 02/23/17 at 14:00; Stop 02/23/17 at 17:34; Status DC Insulin Human Regular 150 unit/ Sodium Chloride 151.5 ml @ 0 mls/hr CONT PRN PRN IV PER PROTOCOL; Start 02/23/17 at 14:00 Pneumococcal Polyvalent Vaccine (Pneumovax 23) 0.5 ml ONCE ONCE VAX IM Last administered on 02/24/17at 12:25; Start 02/24/17 at 09:00; Stop 02/24/17 at 09:02; Status DC Potassium Chloride/Dextrose/ Sod Cl 1,000 ml @ 175 mls/hr Q5H43M IV Last administered on 02/24/17at 02:58; Start 02/23/17 at 21:00; Stop 02/24/17 at 07:18; Status DC Sodium Chloride 1,000 ml @ 150 mls/hr Q6H40M IV Last administered on 02/24/17at 07:52; Start 02/24/17 at 07:30 Insulin Aspart (NovoLOG) 0-9 UNITS QIDACHS SQ Last administered on 02/24/17at 10: 50; Start 02/24/17 at 11:30 Dextrose 12.5 gm PRN Q15MIN PRN IV SEE COMMENTS; Start 02/24/17 at 10:45 Metoclopramide HCl (Reglan) 5 mg TIDAC PO ; Start 02/24/17 at 16:30; Status Cancel Metoclopramide HCl (Reglan) 5 mg TIDAC PO Last administered on 02/24/17at 12:25; Start 02/24/17 at 12:30 Active Scripts Active Zithromax (Azithromycin) 250 Mg Tablet 1 Pkg PO UD Bactrim Ds Tablet (Sulfamethoxazole/Trimethoprim) 1 Each Tablet 1 Tab PO BID Drink lots of fluids while you are on this medication Reported Humalog (Insulin Lispro) 100 Unit/1 Ml Insuln.pen 8 Units SQ TIDBFRMEAL Lantus Solostar (Insulin Glargine,Hum.rec.anlog) 100 Unit/1 Ml Insuln.pen 18 Units SQ HS Metoprolol Succinate ( Xl ) (Metoprolol Succinate) 25 Mg Tab.er.24h 0.5 Tab PO DAILY Pravastatin Sodium 40 Mg Tablet 1 Tab PO HS Patient Instructions Patient Instuctions INSULIN ADJUSTMENTS. STARTED ON REGLAN AND GABAPENTIN. MUST EAT FREQUENT SMALLER MEALS. SEE HER DIABETIC DOCTOR SOON. MELCHOR ALEXANDER DO Feb 24, 2017 13:18
== END 2017-02-24 13:55 | disposition home or self-care (01) | DRG 637 ==
LOC: ER 09:37 → ICU 11:41
PROVIDERS: ADMIT Family Medicine; ATTEND Family Medicine
DX: E11.10 Type 2 diabetes mellitus with ketoacidosis without coma (principal); N17.0 Acute kidney failure with tubular necrosis; R65.10 Systemic inflammatory response syndrome (SIRS) of non-infectious origin without acute organ dysfunction; K31.84 Gastroparesis; N28.9 Disorder of kidney and ureter, unspecified; Z68.1 Body mass index [BMI] 19.9 or less, adult; E78.00 Pure hypercholesterolemia, unspecified; E11.43 Type 2 diabetes mellitus with diabetic autonomic (poly)neuropathy; E86.0 Dehydration; K52.9 Noninfective gastroenteritis and colitis, unspecified; E87.6 Hypokalemia; R63.6 Underweight; Z89.429 Acquired absence of other toe(s), unspecified side; Z88.0 Allergy status to penicillin; Z88.5 Allergy status to narcotic agent; Z79.4 Long term (current) use of insulin; Z79.899 Other long term (current) drug therapy
CPT/HCPCS: 36415; 36600; 78264; 80048; 80053; 81001; 82010; 82803; 82947; 83036; 83605; 83690; 83735; 83930; 84100; 84484; 85007; 85025; 87040; 87641; 90732; 93005; 96361; 96365; 96375; 99292; A9541; J1815; J2405; J7042; J8597; 99291-25; J7030

== ENCOUNTER 2017-06-29 00:52 | Emergency (ER) | payer MEDICARE ==
[~2017-06-29] VITALS: Ht 167.6 cm; Wt 47.6 kg
[~2017-06-29 00:52] MED LIST changes: +GABA-585 PO; +INSU100I11 SQ; +INSU100I13 SQ; +METO-239 PO; +METO10TA81 PO; +METO5TAB55 PO; +PRAV40TA2 PO
--- NOTE | 2017-06-29 00:56 | ED.ADGEN ---
Past History Past Medical History: Diabetes, High Cholesterol Past Surgical History: No Surgical History Smoking: Non-smoker Alcohol Use: None Drug Use: None Adult General Chief Complaint Chief Complaint ".. I bottom out... I took my insulin.. and did not eat.. and I got confused at work.. my sugars got too low..." HPI HPI Patient is a 67 year old female who presents with above hx. of hypoglycemia while working at [employer]. Pt. did take her insulin today, but did not eat. Pt. did consume some food prior to arrival. Pt. denies other acute health issues. Review of Systems Review of Systems Constitutional: Denies fever or chills [] Eyes: Denies change in visual acuity, redness, or eye pain [] HENT: Denies nasal congestion or sore throat [] Respiratory: Denies cough or shortness of breath [] Cardiovascular: No additional information not addressed in HPI [] GI: Denies abdominal pain, nausea, vomiting, bloody stools or diarrhea [] : Denies dysuria or hematuria [] Musculoskeletal: Denies back pain or joint pain [] Integument: Denies rash or skin lesions [] Neurologic: Denies headache, focal weakness or sensory changes [] Endocrine: Denies polyuria or polydipsia []Hx. hypoglycemia at work. All other systems were reviewed and found to be within normal limits, except as documented in this note. Family History Family History Non-contributory Current Medications Current Medications Current Medications Medications (Trade) Dose Ordered Sig/Kacey Start Time Stop Time Status Last Admin Dose Admin Lactated Ringer's 1,000 ml @ 1,000 mls/hr Q1H 06/29/17 02:00 06/29/17 02:49 DC Ondansetron HCl (Zofran Odt) 8 mg 1X ONCE 06/29/17 02:00 06/29/17 02:01 DC Allergies Allergies Allergies Coded Allergies Type Severity Reaction Last Updated Verified Penicillins Allergy Mild 11/30/16 Yes codeine Allergy Mild 11/30/16 Yes Physical Exam Physical Exam Constitutional: no acute distress, non-toxic appearance. [] HENT: Normocephalic, atraumatic, bilateral external ears normal, oropharynx moist, no oral exudates, nose normal. [] Eyes: PERRLA, EOMI, conjunctiva normal, no discharge. [] Neck: Normal range of motion, no tenderness, supple, no stridor. [] Cardiovascular:Heart rate regular rhythm, no murmur [] Lungs & Thorax: Bilateral breath sounds clear to auscultation [] Abdomen: Bowel sounds normal, soft, no tenderness, no masses, no pulsatile masses. [] Old scar. Skin: Warm, dry, no erythema, no rash. Poor turgor. Back: No tenderness, no CVA tenderness. [] Extremities: No tenderness, no cyanosis, no clubbing, ROM intact, no edema. Deconditioned. Neurologic: Alert and oriented X 3, normal motor function, normal sensory function, no focal deficits noted. [] Psychologic: Affect anxious, judgement normal, mood normal. [] Current Patient Data Vital Signs Vital Signs Date Time Temp Pulse Resp B/P (MAP) Pulse Ox O2 Delivery O2 Flow Rate FiO2 06/29/17 01:13 97.5 89 19 97 Room Air Lab Results Laboratory Tests Test 06/29/17 01:08 06/29/17 02:01 06/29/17 02:23 Glucose (Fingerstick) 86 mg/dL (70-99) 285 mg/dL (70-99) H 245 mg/dL (70-99) H EKG EKG [] Radiology/Procedures Radiology/Procedures [] Course & Med Decision Making Course & Med Decision Making Pertinent Labs and Imaging studies reviewed. (See chart for details)- Pt refuses meds or labs. Demands to be discharged. Repeat glucose checks more 200. Pt. to adhere diet and meds as primary directed. Follow up with primary. Return if any concerns. [] Final Impression Final Impression 1. DM 2. Hypoglycemia[] Dragon Disclaimer Dragon Disclaimer This electronic medical record was generated, in whole or in part, using a voice recognition dictation system. SHANTE MITCHELL MD June 29, 2017 00:56
[2017-06-29 01:13] VITALS: BP 118/50
[2017-06-29] MEDS ORDERED: IV RINGERS SOLUTION,LACTATED 1,000 ML IV SCH (02:00)
[2017-06-29] MEDS ORDERED: ONDANSETRON ODT 4 MG TAB.RAPDIS PO ONE (02:00)
== END 2017-06-29 02:49 | disposition home or self-care (01) ==
LOC: ER 00:52
DX: E11.649 Type 2 diabetes mellitus with hypoglycemia without coma (principal); Z79.4 Long term (current) use of insulin; E78.00 Pure hypercholesterolemia, unspecified; Z88.0 Allergy status to penicillin; Z88.5 Allergy status to narcotic agent
CPT/HCPCS: 82947; 99284

== ENCOUNTER 2017-12-15 04:11 | Inpatient (IN) | payer MEDICARE ==
[2017-12-15] VITALS (9 sets, daily range): BP systolic 79–101; BP diastolic 45–58
[~2017-12-15] VITALS: Ht 167.6 cm; Wt 49.0 kg
--- NOTE | 2017-12-15 04:24 | ED.ADGEN ---
Past History Past Medical History: Diabetes, High Cholesterol, Heart Disease Past Surgical History: Cholecystectomy, Tonsillectomy, Other Smoking: Non-smoker Alcohol Use: None Drug Use: None Adult General Chief Complaint Chief Complaint ".. I ve been sick for a few days now.. .. It my diabetes... out of control.. I ve been puking up this yellow stuff... " HPI HPI Patient is a 67 year old female who presents with above hx and complaints nausea , vomiting, chest and epigastric pain. Pt. has know hx of DM, COPD, and PVDz. 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 Pt. Glucose checks have been to high to read at home. No hx of specific ill contacts, travel, or bad food. Pt. currently vomiting yellow fluid. Pt. localized pain in epigastric area. Pt . currently in dry heaving. Review of Systems Review of Systems Constitutional: Denies fever or chills [] Eyes: Denies change in visual acuity, redness, or eye pain [] HENT: Denies nasal congestion or sore throat [] Respiratory: Denies cough or shortness of breath [] Cardiovascular: No additional information not addressed in HPI [] GI: Hx of epigastric abdominal pain, nausea, vomiting, : Denies dysuria or hematuria [] Musculoskeletal: Denies back pain or joint pain [ Complaints of amputation of toes Rt. ] Integument: Denies rash or skin lesions [] Neurologic: Denies headache, focal weakness or sensory changes [] Endocrine: Denies polyuria or polydipsia [] All other systems were reviewed and found to be within normal limits, except as documented in this note. Family History Family History DM Current Medications Current Medications Current Medications Medications (Trade) Dose Ordered Sig/[facility] Start Time Stop Time Status Last Admin Dose Admin Aspirin (Children'S Aspirin) 324 mg 1X ONCE 12/15/17 05:00 12/15/17 05:01 DC Insulin Human Regular 150 unit/ Sodium Chloride 151.5 ml @ 0 mls/hr 1X ONCE 12/15/17 05:00 12/15/17 05:01 DC 12/15/17 05:23 10 MLS/HR Ondansetron HCl (Zofran) 8 mg 1X ONCE 12/15/17 05:00 12/15/17 05:01 DC 12/15/17 05:04 8 MG Sodium Chloride 250 ml @ As Directed STK-MED ONCE 12/15/17 05:16 12/15/17 05:17 DC Vancomycin HCl (Vancomycin) 1 gm STK-MED ONCE 12/15/17 04:54 12/15/17 04:55 DC Vancomycin HCl 1 gm/Sodium Chloride 250 ml @ 250 mls/hr 1X ONCE 12/15/17 05:00 12/15/17 05:59 DC 12/15/17 05:47 250 MLS/HR See Nursing for home meds. Allergies Allergies Allergies Coded Allergies Type Severity Reaction Last Updated Verified Penicillins Allergy Mild 11/30/16 Yes codeine Allergy Mild 11/30/16 Yes Physical Exam Physical Exam Constitutional: in acute distress, ill in appearance. [] HENT: Normocephalic, atraumatic, bilateral external ears normal, oropharynx dry , no oral exudates, nose normal. [] Eyes: PERRLA, EOMI, conjunctiva normal, no discharge. [] Neck: Normal range of motion, no tenderness, supple, no stridor. [] Cardiovascular:Tachycardia Heart rate regular rhythm, no murmur [] Lungs & Thorax: Bilateral breath sounds clear to auscultation [] Abdomen: Bowel sounds decreased, soft, epigastric tenderness, no masses, no pulsatile masses. [] Old surgery scar. Skin: Warm, dry, no erythema, no rash. Poor turgor. Back: No tenderness, no CVA tenderness. [] Extremities: No tenderness, no cyanosis, no clubbing, ROM intact, no edema. [] Recent amputation toes Rt. Neurologic: Alert and oriented X 3, normal motor function,decrease plantar sensory, no focal deficits noted. [] Psychologic: Affect anxious, judgement normal, mood normal. [] Current Patient Data Vital Signs Vital Signs Date Time Temp Pulse Resp B/P (MAP) Pulse Ox O2 Delivery O2 Flow Rate FiO2 12/15/17 05:15 114 22 105/45 (65) 99 Room Air 12/15/17 04:21 98.0 Lab Results Laboratory Tests Test 12/15/17 04:45 White Blood Count 12.3 x10^3/uL (4.0-11.0) H Red Blood Count 4.20 x10^6/uL (3.50-5.40) Hemoglobin 12.7 g/dL (12.0-15.5) Hematocrit 40.5 % (36.0-47.0) Mean Corpuscular Volume 96 fL (79-100) Mean Corpuscular Hemoglobin 30 pg (25-35) Mean Corpuscular Hemoglobin Concent 31 g/dL (31-37) Red Cell Distribution Width 13.8 % (11.5-14.5) Platelet Count 267 x10^3/uL (140-400) Neutrophils (%) (Auto) 87 % (31-73) H Lymphocytes (%) (Auto) 9 % (24-48) L Monocytes (%) (Auto) 4 % (0-9) Eosinophils (%) (Auto) 0 % (0-3) Basophils (%) (Auto) 0 % (0-3) Neutrophils # (Auto) 10.7 x10^3uL (1.8-7.7) H Lymphocytes # (Auto) 1.1 x10^3/uL (1.0-4.8) Monocytes # (Auto) 0.5 x10^3/uL (0.0-1.1) Eosinophils # (Auto) 0.0 x10^3/uL (0.0-0.7) Basophils # (Auto) 0.0 x10^3/uL (0.0-0.2) Prothrombin Time 10.8 SEC (9.4-11.4) Prothrombin Time INR 1.1 (0.9-1.1) PTT 25 SEC (23-33) D-Dimer (Parris) 0.20 mg/L (0.00-0.50) Blood pH 7.13 (7.35-7.45) *L Blood Gas PCO2 26 mmHg (35-45) L Blood Gas PO2 67 mmHg (80-100) L Blood Gas HCO3 9 mmol/L (22-26) L Arterial Bld O2 Saturation (Calc) 86 % (92-99) L FiO2 21 % Sodium Level 132 mmol/L (136-145) L Potassium Level 5.3 mmol/L (3.5-5.1) H Chloride Level 94 mmol/L (98-107) L Carbon Dioxide Level 12 mmol/L (21-32) L Anion Gap 26 (6-14) H Blood Urea Nitrogen 35 mg/dL (7-20) H Creatinine 2.0 mg/dL (0.6-1.0) H Estimated GFR (Cockcroft-Gault) 24.7 Glucose Level 664 mg/dL (70-99) *H Calcium Level 9.3 mg/dL (8.5-10.1) Magnesium Level 2.4 mg/dL (1.8-2.4) Total Bilirubin 0.5 mg/dL (0.2-1.0) Direct Bilirubin 0.1 mg/dL (0.0-0.2) Aspartate Amino Transferase (AST) 13 U/L (15-37) L Alanine Aminotransferase (ALT) 17 U/L (14-59) Alkaline Phosphatase 130 U/L (46-116) H Creatine Kinase 39 U/L (26-192) Troponin I Quantitative < 0.017 ng/mL (0-0.055) EF-Oom-X-Type Natriuretic Peptide 470 pg/mL (0-124) H Total Protein 7.5 g/dL (6.4-8.2) Albumin 3.8 g/dL (3.4-5.0) Lipase 45 U/L (73-393) L Thyroid Stimulating Hormone (TSH) 3.151 uIU/mL (0.358-3.740) EKG EKG My interpretation EKG shows a sinus tachycardia 118 bpm. There is right axis deviation as well as a incomplete right bundle branch block. There is findings of ventricular hypertrophic changes. But no findings acute STEMI with contralateral changes.[] Radiology/Procedures Radiology/Procedures My interpretation of acute abdomen film shows chest with COPD changes. No free air under the diaphragm. Degenerative joint changes clips in right upper abdomen. Non-obstructive bowel gas pattern. Does have a clip in left lower abdomen. [] Course & Med Decision Making Course & Med Decision Making Pertinent Labs and Imaging studies reviewed. (See chart for details) Discussed presentation testing and treatment plan with Dr. Vigil. Will admit to ICU . [] Final Impression Final Impression 1. DKA-glucose 664 2. Peripheral vascular disease 3. Nausea vomiting and abdomen pain 4. Dehydration 5. Multiple electrolyte abnormalities-hyponatremia, elevated potassium, elevated BUN, elevated creatinine. 6. Leukocytosis -12.3 Dragon Disclaimer Dragon Disclaimer This electronic medical record was generated, in whole or in part, using a voice recognition dictation system. SHANTE MITCHELL MD Dec 15, 2017 04:24
[2017-12-15] MEDS ORDERED: IV NORMAL SALINE 250ML 250 ML ONE ×2 (04:53→05:16)
[2017-12-15] MEDS ORDERED: 0.9 % SODIUM CHLORIDE 150ML 150 ML ONE ×3 (04:54→05:16)
[2017-12-15] MEDS ORDERED: VANCOMYCIN 1 GM VIAL. ONE (04:54)
--- NOTE | 2017-12-15 04:57 | EKG ---
[address] [address] Test Date: 2017-12-15 Test Time: 04:53:00 Pat Name: LEILNAI MUÑOZ Department: Room: Gender: F Emr Analyst: : [id number] Requested By: SHANTE MITCHELL Order Number: [id number] Reading MD: Jorge Reyes Measurements Intervals [place] Rate: 118 P: 78 SC: 132 QRS: 128 QRSD: 104 T: 51 QT: 338 QTc: 476 Interpretive Statements SINUS TACHYCARDIA ABNORMAL RIGHT AXIS DEVIATION INCOMPLETE RIGHT BUNDLE BRANCH BLOCK RIGHT VENTRICULAR HYPERTROPHY ABNORMAL ECG Electronically Signed On 12-18-2017 10:18:10 CDT by Jorge Reyes
[2017-12-15] MEDS ORDERED: ONDANSETRON PF 4 MG/2 ML VIAL. IV ONE (05:00)
[2017-12-15] MEDS ORDERED: INSULIN REGULAR VIAL 150 UNIT in 0.9 % SODIUM CHLORIDE 150ML 150 ML IV ONE ×2 (05:00→06:00)
[2017-12-15] MEDS ORDERED: ASPIRIN 81 MG TAB.CHEW PO ONE (05:00)
[2017-12-15] MEDS ORDERED: IV NORMAL SALINE 1,000ML 1,000 ML IV SCH ×2 (05:00→08:00)
[2017-12-15] MEDS ORDERED: VANCOMYCIN 1 GM in IV NORMAL SALINE 250ML 250 ML IV ONE (05:00)
[2017-12-15 05:24] LABS: BASO % 0 % (0-3); EOS % 0 % (0-3); HEMATOCRIT 40.5 % (36.0-47.0); HEMOGLOBIN 12.7 g/dL (12.0-15.5); LYMPH # 1.1 x10^3/uL (1.0-4.8); LYMPH % 9 % (24-48); MEAN CORPUSCULAR HEMOGLOBIN 30 pg (25-35); MEAN CORPUSCULAR HGB CONC 31 g/dL (31-37); MEAN CORPUSCULAR VOLUME 96 fL (79-100); MONO # 0.5 x10^3/uL (0.0-1.1); MONO % 4 % (0-9); NEUT # 10.7 x10^3uL (1.8-7.7); NEUT % 87 % (31-73); PLATELET COUNT 267 x10^3/uL (140-400); RED CELL DISTRIBUTION WIDTH 13.8 % (11.5-14.5); WHITE BLOOD COUNT 12.3 x10^3/uL (4.0-11.0)
[2017-12-15 05:26] LABS: ALBUMIN 3.8 g/dL (3.4-5.0); CALCIUM 9.3 mg/dL (8.5-10.1); DIRECT BILIRUBIN 0.1 mg/dL (0.0-0.2); GFR 24.7; MAGNESIUM 2.4 mg/dL (1.8-2.4); POTASSIUM 5.3 mmol/L (3.5-5.1); TOTAL BILIRUBIN 0.5 mg/dL (0.2-1.0); TOTAL PROTEIN 7.5 g/dL (6.4-8.2)
[2017-12-15] MEDS ORDERED: ONDANSETRON PF 4 MG/2 ML VIAL. IV PRN (05:45)
[2017-12-15] MEDS ORDERED: MORPHINE SULFATE 2 MG/ML DISP.SYRIN. IV PRN (05:45)
[2017-12-15] MEDS ORDERED: ACETAMINOPHEN 325 MG TABLET PO PRN (05:45)
[2017-12-15 05:54] LABS: BGAS PH 7.13 (7.35-7.45)
[2017-12-15] MEDS ORDERED: SODIUM BICARB ADULT 8.4% 50 MEQ/50 ML DISP.SYRIN. IV ONE (06:00)
[2017-12-15] MEDS ORDERED: IV NORMAL SALINE 1,000ML 1,000 ML IV ONE ×2 (07:00→08:00)
--- NOTE | 2017-12-15 07:49 | RAD ---
Acute abdominal series. 12/15/2017 4:45 AM Indication: Nausea, vomiting, abdomen pain Comparison Study: CT of the abdomen and pelvis with contrast December 22, 2010 Discussion: Lungs appear mildly hyperinflated with apical pleural thickening. Correlate for COPD. No focal consolidation is seen. No pneumothorax or pleural effusion is seen. Heart size is normal. No radiographic evidence of pneumoperitoneum is identified. There is a relative paucity of bowel gas. The overall bowel gas pattern is nonspecific. Innumerable calcified splenic granulomata noted. Less prominent hepatic granulomata are also seen. Prior cholecystectomy noted. No acute osseous abnormalities are seen. Impression: 1. Nonspecific bowel gas pattern with relative paucity of bowel gas. 2. No evidence of acute cardiopulmonary process 3. Possible changes of COPD Electronically signed by: Farrukh Navarrete MD (12/15/2017 7:46 AM) [id number]
[2017-12-15] MEDS ORDERED: IV DEXTROSE 5 %-0.45 % NACL 1,000 ML IV SCH (08:00)
[2017-12-15] MEDS ORDERED: INSULIN REGULAR VIAL 150 UNIT in 0.9 % SODIUM CHLORIDE 150ML 150 ML IV PRN (08:00)
[2017-12-15] MEDS ORDERED: IPRATRPIUM/ALBUTEROL 0.5/2.5MG 3 ML NEBU. NEB SCH (08:00)
[2017-12-15] MEDS: POTASSIUM CL 20MEQ D5-0.45NACL 1,000 ML IV SCH ×2 (08:58→14:33)
[2017-12-15 10:05] LABS: ALBUMIN 2.9 g/dL (3.4-5.0); CALCIUM 7.6 mg/dL (8.5-10.1); CREATININE 1.6 mg/dL (0.6-1.0); POTASSIUM 3.8 mmol/L (3.5-5.1); TOTAL BILIRUBIN 0.3 mg/dL (0.2-1.0); TOTAL PROTEIN 5.8 g/dL (6.4-8.2)
[2017-12-15] MEDS ORDERED: VANCOMYCIN PER PHARMACY MC PRN (10:45)
[2017-12-15] MEDS ORDERED: INSU100I13 SQ (10:48)
[2017-12-15] MEDS ORDERED: INSU100V SQ (10:48)
[2017-12-15] MEDS: METOPROLOL SUCC 24HR ER 25 MG TAB.ER.24H. PO SCH (11:00)
[2017-12-15] MEDS ORDERED: METOCLOPRAMIDE 10 MG TABLET PO PRN (11:00)
[2017-12-15] MEDS ORDERED: IPRATRPIUM/ALBUTEROL 0.5/2.5MG 3 ML NEBU. NEB PRN (12:00)
--- NOTE | 2017-12-15 13:34 | HP ---
ADMIT DATE: 12/15/2017 HISTORY OF PRESENT ILLNESS: The patient is a 67-year-old female patient, who came to the Emergency Room complaining that she has been sick for few days now. The blood sugar has been marked with poorly controlled diabetes, recurrent bouts of nausea, vomiting. She also complained of chest and epigastric pain. She apparently has recently had partial amputation of her second right toe due to peripheral vascular disease. Apparently, her blood sugar has been extremely high. She denied; however, any chills, rigors, or fever. She was extensively investigated in the Emergency Room, was found to have to be acidotic. Her blood gases showed a pH of 7.13, pCO2 of 26, pO2 of 67 and oxygen saturation was 86% and FiO2 of 21%. Her blood sugar was extremely high at 664. Her creatinine was up 2. She has hyponatremia, hyperkalemia, and anion gap of 26. Her white cell count is also high at 12,300. She was admitted with diabetic ketoacidosis, started on IV fluid as well as insulin drip and was given a dose of vancomycin. PAST MEDICAL HISTORY: Significant for probably type 1 diabetes for the last 45 years. She has also peripheral neuropathy. Multiple episodes of infection with resultant left second toe amputation, right big toe amputation and partial amputation of the right second toe amputation. She also has bilateral cataract extraction. PAST SURGICAL HISTORY: Significant for bilateral cataract extraction by left second toe amputation, right first big toe amputation, right partial second toe amputation. She is status post cholecystectomy, esophagogastroduodenoscopy, and colonoscopy. ALLERGIES: She is allergic to PENICILLIN as well as CODEINE. MEDICATIONS: She is currently on following medications: She is on NovoLog insulin before meals and Lantus at bedtime. She is also on pravastatin 40 mg at bedtime, metoprolol 25 mg she takes half a tablet daily, gabapentin 100 mg at bedtime, metoclopramide 10 mg at bedtime and metoclopramide before meals. She is on Lantus 25 units at bedtime and Humalog insulin 12 units before meals. FAMILY HISTORY: She has 2 older sisters that are alive in [place], [place]. Her father in his 80s with dementia and mother in her 80s due to cerebrovascular accident. SOCIAL HISTORY: She lives with her significant others for the last 25 years. She has 1 son who lives here and 1 daughter who lives in [place]. She is an ex-smoker, quit smoking about 35 years ago. She does not drink alcohol or use any recreational drugs. She worked for [employer]. REVIEW OF SYSTEMS: The patient has had bilateral cataract extraction, but denied any glaucoma or macular degeneration. Denied any earache, tinnitus or sensorineural deafness. Denied any nosebleeds, stuffy nose or postnasal drip. Denied any sore throat, sore tongue, toothache, hoarseness of voice or difficulty swallowing. She did complain of recurrent bouts of nausea, vomiting and epigastric pain, but denied any diarrhea or constipation. Denied any hematemesis, melena or hematochezia. Denied any dysuria, frequency or hematuria. Denied any chest pain or shortness of breath, cough, phlegm or hemoptysis. PHYSICAL EXAMINATION: GENERAL: On arrival to the Emergency Room, she looked pale, somewhat cachectic, but no jaundice or cyanosis. No lymphadenopathy, no thyromegaly, no jugular venous distension. No lower limb edema. VITAL SIGNS: Her heart rate was 117, blood pressure was 109/41, temperature was 98, respiratory rate was 24, and oxygen saturation was 100% on room air. HEAD, EYES, EARS, NOSE AND THROAT: Showed normocephalic, atraumatic. NECK: Supple. HEART: Showed normal first and second heart sounds with no gallop, rub or murmur. CHEST: Clear to auscultation. No crepitation or rhonchi. ABDOMEN: Distended, soft, nontender. NEUROLOGIC: She is awake, alert, responding appropriately. All cranial nerves intact. EXTREMITIES: She moves all her extremities without difficulty. She has left second toe amputation and right big toe amputation and partial second right toe amputation. LABORATORY DATA: On arrival to the Emergency Room showed a white cell count of 12,300, hemoglobin 12.7, hematocrit 40, MCV 96, and platelet count 267,000. Her chemistry showed serum sodium of 132, potassium 5.3, chloride 94, bicarbonate 12, anion gap of 26, BUN 35, creatinine 2, estimated GFR was 24 mL per minute. Her glucose was 664, lactic acid was 4, calcium was 9.3, magnesium was 2.4. Total bilirubin, AST, ALT were normal. Alkaline phosphatase was slightly elevated. Her beta natriuretic peptide was 470. Total protein was 7.5, albumin 3.8. Serum lipase was only 45 and her troponin was 0.017. Her prothrombin time was 10.8, INR of 1.1, aPTT was 25 and D-dimer was 0.20. She apparently has acute abdomen series, which showed that the lungs appear mildly hyperinflated with apical pleural thickening, no focal consolidation is seen. No pneumothorax or pleural effusion is seen. The heart size is normal. No radiographic evidence of pneumoperitoneum is identified. There is a relative paucity of bowel gas. The overall bowel gas pattern is nonspecific and innumerable calcific splenic granulomas noted, less prominence hepatic granulomas are seen also. Prior cholecystectomy noted. No acute osseous abnormalities seen. IMPRESSION: The patient has nonspecific bowel gas pattern with relative paucity of bowel gas, no evidence of acute cardiopulmonary process and possible changes of COPD. patient was treated with IV fluid, insulin drip was given, vancomycin. We will monitor her lab work slowly and start her on oral diet if she tolerates. MARCO FONTAINE MD DR: DELORIS/nina JOB#: [id number] / [id number]
[2017-12-15 14:16] LABS: BARBITURATES NEG (NEG); BENZODIAZEPINES NEG (NEG); CANNABINOIDS NEG (NEG); COCAINE NEG (NEG); METHADONE NEG (NEG); OPIATES NEG (NEG); PHENCYCLIDINE NEG (NEG)
[2017-12-15 14:19] LABS: BACTERIA,URINE 0 /HPF (0-FEW); BILIRUBIN,URINE NEG (NEG); CLARITY,URINE CLEAR; COLOR,URINE YELLOW; GLUCOSE,URINE 500 mg/dL (NEG); NITRITE,URINE NEG (NEG); RBC,URINE 0 /HPF (0-2); SQUAMOUS EPITHELIAL CELL,UR FEW /LPF; UROBILINOGEN,URINE 0.2 mg/dL (0.2 mg/dL)
[2017-12-15 14:21] LABS: AMPHETAMINE/METHAMPHETAMINE NEG (NEG)
[2017-12-15 15:41] LABS: CALCIUM 7.7 mg/dL (8.5-10.1); CREATININE 1.4 mg/dL (0.6-1.0); GFR 37.3; POTASSIUM 4.1 mmol/L (3.5-5.1)
[2017-12-15] MEDS ORDERED: DEXTROSE 50% 25 GM / 50ML DISP.SYRIN. IV PRN (15:45)
[2017-12-15] MEDS: IV NORMAL SALINE 1,000ML 1,000 ML IV SCH ×2 (16:28→23:15)
[2017-12-15] MEDS ORDERED: INSULIN LISPRO 300 UNITS/3 ML INSULN.PEN. SQ SCH (17:00)
[2017-12-15] MEDS ORDERED: INSULIN LISPRO 300 UNITS/3 ML INSULN.PEN. SQ PRN (18:45)
[2017-12-15] MEDS ORDERED: METOCLOPRAMIDE 10 MG TABLET PO SCH (21:00)
[2017-12-15] MEDS ORDERED: GABAPENTIN 100 MG CAPSULE. PO SCH (21:00)
[2017-12-15] MEDS ORDERED: PRAVASTATIN 20 MG TABLET. PO SCH (21:00)
[2017-12-15] MEDS ORDERED: INSULIN GLARGINE 300 UNITS/3 ML INSULN.PEN. SQ SCH (21:00)
[2017-12-16 00:01] VITALS: BP 93/41
[2017-12-16 04:00] VITALS: BP 90/47
[2017-12-16] MEDS ORDERED: VANCOMYCIN 1 GM in IV NORMAL SALINE 250ML 250 ML IV SCH (05:00)
[2017-12-16] MEDS: IV NORMAL SALINE 1,000ML 1,000 ML IV SCH (05:36)
[2017-12-16 06:06] LABS: BASO % 0 % (0-3); EOS % 0 % (0-3); HEMATOCRIT 28.9 % (36.0-47.0); HEMOGLOBIN 9.5 g/dL (12.0-15.5); LYMPH # 2.1 x10^3/uL (1.0-4.8); LYMPH % 21 % (24-48); MEAN CORPUSCULAR HEMOGLOBIN 30 pg (25-35); MEAN CORPUSCULAR HGB CONC 33 g/dL (31-37); MEAN CORPUSCULAR VOLUME 92 fL (79-100); MONO # 0.6 x10^3/uL (0.0-1.1); MONO % 6 % (0-9); NEUT # 7.6 x10^3uL (1.8-7.7); NEUT % 73 % (31-73); PLATELET COUNT 197 x10^3/uL (140-400); RED BLOOD COUNT 3.16 x10^6/uL (3.50-5.40); RED CELL DISTRIBUTION WIDTH 13.3 % (11.5-14.5); WHITE BLOOD COUNT 10.4 x10^3/uL (4.0-11.0)
[2017-12-16 06:13] LABS: CALCIUM 7.3 mg/dL (8.5-10.1); CREATININE 0.9 mg/dL (0.6-1.0); GFR 62.1; POTASSIUM 3.6 mmol/L (3.5-5.1)
[2017-12-16 08:09] VITALS: BP 95/50
[2017-12-16 08:12] VITALS: BP 95/50
[2017-12-16] MEDS: METOPROLOL SUCC 24HR ER 25 MG TAB.ER.24H. PO SCH (08:12)
--- NOTE | 2017-12-16 21:15 | DS ---
DATE OF DISCHARGE: 12/16/2017 HISTORY OF PRESENT ILLNESS: The patient is a 67-year-old female patient who was admitted with a complaint of recurrent bouts of nausea and vomiting. She also complained of chest pain and epigastric pain. Apparently, recently had partial amputation of her second right toe due to peripheral vascular disease. Her blood sugar has been extremely high. She denied, however, any chills, rigors or fever. She was extensively investigated in the Emergency Room, was found to be in diabetic ketoacidosis. Her pH was 7.13, pCO2 of 26. Her blood sugar was extremely high at 664. Her serum creatinine was up to 2. She has dilutional hyponatremia, hyperkalemia and high anion gap. Her white cell count was high at 12,300. She was admitted with diabetic ketoacidosis together with infected right second toe, although x-ray showed no evidence of any osteomyelitis. She did well. Her lab work has dramatically improved. We did start her on IV vancomycin. Her serum sodium has normalized to 139, potassium is down to 3.6. Her anion gap is down to 8. Her BUN came down from 35 to 17 and creatinine from 2.1 to 0.9 mg/dL. Her blood sugar has stabilized. In fact, she actually has a tendency to hypoglycemia, so I cut down on her Levemir from 16 to 12 units and her NovoLog from 8 to 6 units. The patient was discharged home to follow with her trekking guide and her primary care physician. OBJECTIVE: GENERAL: On discharge this morning, she looked well and was clearly in no apparent respiratory distress. She was pale, but no jaundice, cyanosed or thyromegaly. No jugular venous distension. No limb edema. VITAL SIGNS: Her heart rate was 87, blood pressure was 95/50, temperature was 98.5, respiratory rate was 18 and oxygen saturation was 98%. HEAD, EYES, EARS, NOSE AND THROAT: Normocephalic, atraumatic. NECK: Supple. HEART: Showed normal first and second heart sounds. No gallop, rub or murmur. CHEST: Clear to auscultation. No crepitation or rhonchi. ABDOMEN: Distended, soft, nontender. No guarding or rigidity. No organomegaly. Hernial orifice intact. Bowel sounds are normal. NEUROLOGIC: She is awake, alert, responding appropriately. All the cranial nerves are intact. She moves extremities without difficulty. She ambulates without assistance or assistive devices. Examination of her extremities showed she has left second toe amputation, right big toe amputation and right second toe partial amputation. Her intake over the last 24 hours was 3000, no output was recorded. Her lab work as of this morning showed a serum sodium of 139, potassium 3.6, chloride 109, bicarbonate 22, anion gap of 8, BUN 17, creatinine 0.9, estimated GFR was 62 mL per minute. Her glucose was 84 and calcium was 7.3. Her lactic acid has came down from 4 to 1.9 and she has been doing very well. She was discharged home to continue on following medications. She will continue metoclopramide 10 mg before meals and at bedtime, metoprolol succinate 25 mg, she takes half a tablet once a day, pravastatin 40 mg at bedtime, her Lantus is changed to 12 units and NovoLog insulin to 6 units and should follow with her primary care physician and trekking guide. FINAL DISCHARGE DIAGNOSES: 1. Diabetic ketoacidosis. 2. Acute kidney injury. 3. Hyperkalemia. 4. Dilutional hyponatremia. 5. Infected right second toe, status post partial amputation. She was treated with IV vancomycin while in the hospital. Her x-ray showed no evidence of osteomyelitis and should continue and should finish the course of treatment in the form of Bactrim-DS 1 tablet twice a day as recommended by her trekking guide. MARCO FONTAINE MD DR: DELORIS/nina JOB#: [id number] / [id number]
== END 2017-12-16 09:26 | disposition home or self-care (01) | DRG 637 ==
LOC: ER 04:11 → ICU 05:30
PROVIDERS: ADMIT Internal Medicine; ATTEND Internal Medicine
DX: E10.10 Type 1 diabetes mellitus with ketoacidosis without coma (principal); N17.0 Acute kidney failure with tubular necrosis; E87.1 Hypo-osmolality and hyponatremia; E10.649 Type 1 diabetes mellitus with hypoglycemia without coma; E78.00 Pure hypercholesterolemia, unspecified; E10.42 Type 1 diabetes mellitus with diabetic polyneuropathy; E10.51 Type 1 diabetes mellitus with diabetic peripheral angiopathy without gangrene; E87.5 Hyperkalemia; J44.9 Chronic obstructive pulmonary disease, unspecified; Z79.899 Other long term (current) drug therapy; Z83.3 Family history of diabetes mellitus; Z79.4 Long term (current) use of insulin; Z82.3 Family history of stroke; Z87.891 Personal history of nicotine dependence; Z89.421 Acquired absence of other right toe(s); Z89.411 Acquired absence of right great toe; Z89.422 Acquired absence of other left toe(s); Z90.49 Acquired absence of other specified parts of digestive tract; Z98.41 Cataract extraction status, right eye; Z98.42 Cataract extraction status, left eye
CPT/HCPCS: 36415; 74022; 80048; 80053; 80076; 80307; 81001; 82550; 82803; 82947; 83605; 83690; 83735; 83880; 84443; 84484; 85025; 85379; 85610; 85730; 87040; 87641; 93005; 96365; 96368; 96375; J1815; J2405; J3370; J7050; J8597; 99285-25; G0479; J7030

== ENCOUNTER 2019-03-21 14:45 | Emergency (ER) | payer MEDICARE, MEDICAID ==
[~2019-03-21] VITALS: Ht 165.1 cm; Wt 46.3 kg
[~2019-03-21 14:45] MED LIST changes: +INSU100V SQ
[2019-03-21] MEDS ORDERED: IV NORMAL SALINE 1,000ML 1,000 ML IV ONE (15:00)
[2019-03-21] MEDS ORDERED: DEXTROSE 50% 25 GM / 50ML DISP.SYRIN. IV ONE (15:00)
[2019-03-21 15:19] VITALS: BP 140/61
[2019-03-21 15:25] LABS: BASO % 0 % (0-3); EOS # 0.2 x10^3/uL (0.0-0.7); EOS % 2 % (0-3); HEMATOCRIT 32.8 % (36.0-47.0); HEMOGLOBIN 10.4 g/dL (12.0-15.5); LYMPH # 2.4 x10^3/uL (1.0-4.8); LYMPH % 22 % (24-48); MEAN CORPUSCULAR HEMOGLOBIN 29 pg (25-35); MEAN CORPUSCULAR HGB CONC 32 g/dL (31-37); MEAN CORPUSCULAR VOLUME 91 fL (79-100); MONO # 0.9 x10^3/uL (0.0-1.1); MONO % 8 % (0-9); NEUT # 7.5 x10^3uL (1.8-7.7); NEUT % 68 % (31-73); PLATELET COUNT 262 x10^3/uL (140-400); RED CELL DISTRIBUTION WIDTH 14.7 % (11.5-14.5)
--- NOTE | 2019-03-21 15:26 | PHYS DOC ---
Past History Past Medical History: Diabetes, GERD, High Cholesterol Past Surgical History: Cholecystectomy Smoking: Non-smoker Alcohol Use: None Drug Use: None Adult General Chief Complaint Chief Complaint: HYPOGLYCEMIA HPI HPI 68-year-old female presents with hypoglycemia. The patient was out shopping with family when she became very weak and had altered mental status. Family was concerned she was having hypoglycemia. They brought her by private vehicle to the emergency room. When she got here, the patient was unable to talk to us or move herself into the bed. Staff lifted her to the [facility]. Her initial blood sugar was 32. After some D50, the patient was able to speak with me. She states that she does not remember what happened, but assumes that she went low blood sugar. She tells me that when her blood sugar goes low she does not remember things. She members that she was out shopping. She took her insulin around 1:00. She tells me that she had a little bit at that time, but not very much. She thinks she likely did not eat enough. She is feeling much better this time. She has no complaints. Review of Systems Review of Systems Constitutional: Denies fever or chills [] Eyes: Denies change in visual acuity, redness, or eye pain [] HENT: Denies nasal congestion or sore throat [] Respiratory: Denies cough or shortness of breath [] Cardiovascular: No additional information not addressed in HPI [] GI: Denies abdominal pain, nausea, vomiting, bloody stools or diarrhea [] : Denies dysuria or hematuria [] Musculoskeletal: Denies back pain or joint pain [] Integument: Denies rash or skin lesions [] Neurologic: Denies headache, focal weakness or sensory changes [] Endocrine: Denies polyuria or polydipsia [] All other systems were reviewed and found to be within normal limits, except as documented in this note. Current Medications Current Medications Current Medications Medications (Trade) Dose Ordered Sig/Kacey Start Time Stop Time Status Last Admin Dose Admin Dextrose (Dextrose 50%-Water Syringe) 25 gm 1X ONCE 03/21/19 15:00 03/21/19 15:05 DC 03/21/19 15:04 25 GM Sodium Chloride 1,000 ml @ 1,000 mls/hr 1X ONCE 03/21/19 15:00 03/21/19 15:59 03/21/19 15:06 1,000 MLS/HR Allergies Allergies Allergies Coded Allergies Type Severity Reaction Last Updated Verified Penicillins Allergy Mild 11/30/16 Yes codeine Allergy Mild 11/30/16 Yes Physical Exam Physical Exam Constitutional: Initially awake, but unresponsive to questions. Well developed, well nourished, no acute distress, non-toxic appearance. [] HENT: Normocephalic, atraumatic, bilateral external ears normal, oropharynx moist, no oral exudates, nose normal. [] Eyes: PERRLA, EOMI, conjunctiva normal, no discharge. [] Neck: Normal range of motion, no tenderness, supple, no stridor. [] Cardiovascular: Heart rate regular rhythm, no murmur [] Lungs & Thorax: Bilateral breath sounds clear to auscultation [] Abdomen: Bowel sounds normal, soft, no tenderness, no masses, no pulsatile masses. [] Skin: Warm, dry, no erythema, no rash. [] Back: No tenderness, no CVA tenderness. [] Extremities: No tenderness, no cyanosis, no clubbing, ROM intact, no edema. [] Neurologic: Alert and oriented X 3, normal motor function, normal sensory function, no focal deficits noted. [] Psychologic: Affect normal, judgement normal, mood normal. [] Current Patient Data Lab Results Laboratory Tests Test 03/21/19 14:50 Glucose (Fingerstick) 32 mg/dL (70-99) *L EKG EKG Sinus rhythm, rate 97, normal axis, no ST elevations or depressions, right bundle branch block, PAC[] Radiology/Procedures Radiology/Procedures [] Impressions: INDICATION: Altered mental status COMPARISON: November 2017 FINDINGS: Single view of chest obtained. Displaced fracture of the left proximal humerus partially seen. Fullness of the right pulmonary hilum. Calcific atherosclerosis. Prominent interstitial markings. IMPRESSION: * Fullness of the right hilar region. Differential considerations include perihilar airspace consolidation although a central mass or enlarged lymph nodes can also have this appearance. May be helpful to obtain a follow-up CT of the chest with contrast to ensure that there is not a mass or lymph nodes contributing to this appearance. * Mild interstitial prominence bilaterally which can be seen with mild pulmonary vascular congestion or interstitial infiltrate. * Displaced fracture of the left proximal humerus partially seen. Electronically signed by: Kayode Arshad MD (03/21/2019 3:43 PM) [facility] [place] DICTATED AND SIGNED BY: KAYODE ARSHAD MD DATE: 03/21/19 1543 CC: KATYA RAMIREZ DO; ALEJANDRO GLASS MD ~ Course & Med Decision Making Course & Med Decision Making Pertinent Labs and Imaging studies reviewed. (See chart for details) The patient was very hypoglycemic on arrival. She was given D50. I'm sure about time, this. The patient right up. She was able to give me a more complete history. Her chest x-ray shows some fullness of the right hilar region and interstitial prominence bilaterally. See official report for details. There is also displaced fracture of the left proximal humerus. This fracture is not new. This injury occurred a few months ago. She is seeing orthopedics next week. Her labs are unremarkable except for mild anemia and her hypoglycemia. That has improved in the 140s at this time. Her urinalysis is unremarkable. She is stable for discharge at this time. [] Dragon Disclaimer Dragon Disclaimer This electronic medical record was generated, in whole or in part, using a voice recognition dictation system. Departure Departure: Impression: Primary Impression: Hypoglycemia Disposition: 01 HOME, SELF-CARE Condition: IMPROVED Referrals: ALEJANDRO GLASS MD (PCP) Patient Instructions: Hypoglycemia, [id number] KATYA RAMIREZ DO Mar 21, 2019 15:25
[2019-03-21 15:32] LABS: ALBUMIN 3.3 g/dL (3.4-5.0); ALBUMIN/GLOBULIN RATIO 0.8 (1.0-1.7); CALCIUM 8.7 mg/dL (8.5-10.1); CREATININE 0.7 mg/dL (0.6-1.0); GFR 82.7; TOTAL BILIRUBIN 0.3 mg/dL (0.2-1.0); TOTAL PROTEIN 7.4 g/dL (6.4-8.2)
--- NOTE | 2019-03-21 15:46 | RAD ---
INDICATION: Altered mental status COMPARISON: November 2017 FINDINGS: Single view of chest obtained. Displaced fracture of the left proximal humerus partially seen. Fullness of the right pulmonary hilum. Calcific atherosclerosis. Prominent interstitial markings. IMPRESSION: * Fullness of the right hilar region. Differential considerations include perihilar airspace consolidation although a central mass or enlarged lymph nodes can also have this appearance. May be helpful to obtain a follow-up CT of the chest with contrast to ensure that there is not a mass or lymph nodes contributing to this appearance. * Mild interstitial prominence bilaterally which can be seen with mild pulmonary vascular congestion or interstitial infiltrate. * Displaced fracture of the left proximal humerus partially seen. Electronically signed by: Kayode Arshad MD (03/21/2019 3:43 PM) [facility] [place]
--- NOTE | 2019-03-21 16:33 | EKG ---
[address] [address] Test Date: 2019-03-21 Test Time: 15:18:04 Pat Name: LEILANI MUÑOZ Department: Room: Gender: F Ccie: : 1950 Requested By: KATYA RAMIREZ Order Number: [id number] Reading MD: Measurements Intervals [place] Rate: 97 P: 36 PA: 136 QRS: 77 QRSD: 94 T: 72 QT: 378 QTc: 485 Interpretive Statements SINUS RHYTHM ATRIAL PREMATURE COMPLEX(ES), BIGEMINY S1,S2,S3 PATTERN PROLONGED QT ABNORMAL ECG RI6.01 No previous ECG available for comparison
[2019-03-21 17:23] LABS: BACTERIA,URINE 0 /HPF (0-FEW); BILIRUBIN,URINE NEG (NEG); CLARITY,URINE CLOUDY; COLOR,URINE YELLOW; GLUCOSE,URINE 100 mg/dL (NEG); NITRITE,URINE NEG (NEG); RBC,URINE RARE /HPF (0-2); SQUAMOUS EPITHELIAL CELL,UR FEW /LPF; UROBILINOGEN,URINE 0.2 mg/dL (0.2 mg/dL); WBC,URINE 0 /HPF (0-4)
== END 2019-03-21 17:30 | disposition home or self-care (01) ==
LOC: ER 14:45
DX: E11.649 Type 2 diabetes mellitus with hypoglycemia without coma (principal); R41.82 Altered mental status, unspecified; K21.9 Gastro-esophageal reflux disease without esophagitis; E78.5 Hyperlipidemia, unspecified; Z90.49 Acquired absence of other specified parts of digestive tract; Z88.0 Allergy status to penicillin; Z88.5 Allergy status to narcotic agent
CPT/HCPCS: 36415; 71045; 80053; 81001; 82947; 84484; 85025; 93005; 96361; 96374; 99285-25; J7030

== ENCOUNTER 2019-04-03 21:16 | Inpatient (IN) | payer MEDICARE, MEDICAID ==
[~2019-04-03] VITALS: Ht 167.6 cm; Wt 47.0 kg
--- NOTE | 2019-04-03 21:46 | PHYS DOC ---
Past History Past Medical History: Diabetes, Hypertension, Kidney Stones, Stroke Past Surgical History: Cholecystectomy, Other Additional Past Surgical Histo: 3 stents Smoking: Non-smoker Alcohol Use: None Drug Use: None Adult General Chief Complaint Chief Complaint: HYPERGLYCEMIA..." My sugars are all over the place.. I ve been giving my insuling.. the were 400's 500 at home.. HPI HPI Patient is a 68 year old female who presents with above hx and complaints of hyperglycemia. She states she's been taking her insulin as directed but does not know her dosages. Patient denies any change in diet. Patient denies any travel or specific ill contacts. Patient extremely anxious about her fluctuating blood sugar levels. States only time she had this much problem for glucose levels has been when she had an infection. Review of Systems Review of Systems Constitutional: Denies fever or chills [] Eyes: Denies change in visual acuity, redness, or eye pain [] HENT: Denies nasal congestion or sore throat [] Respiratory: Denies cough or shortness of breath [] Cardiovascular: No additional information not addressed in HPI [] GI: Denies abdominal pain, nausea, vomiting, bloody stools or diarrhea [] : Denies dysuria or hematuria [] Musculoskeletal: Denies back pain or joint pain [] Integument: Denies rash or skin lesions [] Neurologic: Denies headache, focal weakness or sensory changes [] Endocrine: Denies polyuria or polydipsia [] All other systems were reviewed and found to be within normal limits, except as documented in this note. Family History Family History Diabetes Current Medications Current Medications See nursing for home medications Allergies Allergies Allergies Coded Allergies Type Severity Reaction Last Updated Verified Penicillins Allergy Mild 11/30/16 Yes codeine Allergy Mild 11/30/16 Yes Physical Exam Physical Exam Constitutional: , no acute distress, non-toxic appearance. [] HENT: Normocephalic, atraumatic, bilateral external ears normal, oropharynx dry, no oral exudates, nose normal. [] Eyes: PERRLA, EOMI, conjunctiva normal, no discharge. [] Neck: Normal range of motion, no tenderness, supple, no stridor. [] Cardiovascular:Heart rate regular rhythm, no murmur PMI to the left Lungs & Thorax: Bilateral breath sounds clear to auscultation [] Abdomen: Bowel sounds normal, soft, no tenderness, no masses, no pulsatile masses. [] Skin: Warm, dry, no erythema, no rash. [] Back: No tenderness, no CVA tenderness. [] Extremities: No tenderness, no cyanosis, no clubbing, ROM intact, no edema. Arthritic changes Neurologic: Alert and oriented X 3, normal motor function, normal sensory function, no focal deficits noted. [] Psychologic: Affect very anxious, judgement normal, mood normal. [] EKG EKG My interpretation EKG shows a sinus rhythm at 86 bpm. Has leftward axis. Incomplete right bundle branch block. No findings acute STEMI of contralateral changes.[] Radiology/Procedures Radiology/Procedures [][place] [address] IMAGING REPORT Signed PATIENT: LEILANI MUÑOZ ACCOUNT: [id number] : 1950 LOCATION: ER AGE: 68 SEX: F EXAM STATUS: REG ER ORD. PHYSICIAN: SHANTE MITCHELL MD REASON: hyperglycemia PROCEDURE: CHEST PA & LATERAL Exam: Chest 2 views INDICATION: Hyperglycemia TECHNIQUE: Frontal and lateral views the chest Comparisons: 03/21/2019 FINDINGS: The cardiomediastinal silhouette and pulmonary vessels are within normal limits. The lung and pleural spaces are clear. IMPRESSION: No acute cardiopulmonary process. Electronically signed by: Juice Kang MD (04/03/2019 11:41 PM) [id number] DICTATED AND SIGNED BY: JUICE KANG MD DATE: 04/03/19 2341 CC: SHANTE MITCHELL MD; ALEJANDRO GLASS MD ~ Course & Med Decision Making Course & Med Decision Making Pertinent Labs and Imaging studies reviewed. (See chart for details) Admit to Dr. RDZ Impression: 1. Hyperglycemia 2. Anemia Hgb 9.6 3. Dehydration 4. Elevated BUN 5. Elevated Alk Phos 162 6. Elevated Lactic Acid 2.7 [] Jozef Disclaimer Dragmaria teresa Disclaimer This electronic medical record was generated, in whole or in part, using a voice recognition dictation system. Departure Departure: Disposition: HOME/RESIDENCE PRIOR TO ADM Condition: STABLE Referrals: ALEJANDRO GLASS MD (PCP) Jozef Disclaimer This chart was dictated in whole or in part using Voice Recognition software in a busy, high-work load, and often noisy Emergency Department environment. It may contain unintended and wholly unrecognized errors or omissions. SHANTE MITCHELL MD Apr 03, 2019 21:45
[2019-04-03] MEDS ORDERED: IV NORMAL SALINE 1,000ML 1,000 ML IV SCH (22:00)
[2019-04-03 22:17] LABS: BACTERIA,URINE MOD /HPF (0-FEW); BILIRUBIN,URINE NEG (NEG); CLARITY,URINE CLOUDY; COLOR,URINE YELLOW; GLUCOSE,URINE >=1000 mg/dL (NEG); NITRITE,URINE NEG (NEG); SQUAMOUS EPITHELIAL CELL,UR FEW /LPF; UROBILINOGEN,URINE 0.2 mg/dL (0.2 mg/dL)
[2019-04-03 22:18] LABS: HYALINE CASTS, URINE OCC /HPF
[2019-04-03 22:21] LABS: BARBITURATES NEG (NEG); BENZODIAZEPINES NEG (NEG); CANNABINOIDS NEG (NEG); COCAINE NEG (NEG); METHADONE NEG (NEG); OPIATES NEG (NEG); PHENCYCLIDINE NEG (NEG)
[2019-04-03 22:24] LABS: BASO # 0.1 x10^3/uL (0.0-0.2); BASO % 1 % (0-3); EOS # 0.1 x10^3/uL (0.0-0.7); EOS % 2 % (0-3); HEMATOCRIT 30.5 % (36.0-47.0); HEMOGLOBIN 9.7 g/dL (12.0-15.5); LYMPH # 1.7 x10^3/uL (1.0-4.8); LYMPH % 36 % (24-48); MEAN CORPUSCULAR HEMOGLOBIN 29 pg (25-35); MEAN CORPUSCULAR HGB CONC 32 g/dL (31-37); MEAN CORPUSCULAR VOLUME 90 fL (79-100); MONO # 0.4 x10^3/uL (0.0-1.1); MONO % 8 % (0-9); NEUT # 2.6 x10^3uL (1.8-7.7); NEUT % 54 % (31-73); PLATELET COUNT 359 x10^3/uL (140-400); RED BLOOD COUNT 3.37 x10^6/uL (3.50-5.40); RED CELL DISTRIBUTION WIDTH 14.6 % (11.5-14.5); WHITE BLOOD COUNT 4.8 x10^3/uL (4.0-11.0)
[2019-04-03 22:24] LABS: AMPHETAMINE/METHAMPHETAMINE NEG (NEG)
--- NOTE | 2019-04-03 22:33 | EKG ---
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
[2019-04-03 22:38] LABS: CALCIUM 8.8 mg/dL (8.5-10.1); GFR 54.8; POTASSIUM 3.7 mmol/L (3.5-5.1)
[2019-04-03 22:50] LABS: INFLUENZA A PATIENT NEGATIVE (NEGATIVE); INFLUENZA B PATIENT NEGATIVE (NEGATIVE)
[2019-04-03 22:51] LABS: ALBUMIN 3.5 g/dL (3.4-5.0); DIRECT BILIRUBIN 0.1 mg/dL (0.0-0.2); TOTAL BILIRUBIN 0.1 mg/dL (0.2-1.0)
[2019-04-03] MEDS ORDERED: IV RINGERS SOLUTION,LACTATED 1,000 ML IV ONE (23:30)
[2019-04-03] MEDS ORDERED: INSULIN REGULAR VIAL 100 UNIT in IV NORMAL SALINE 100ML 100 ML IV ONE (23:30)
--- NOTE | 2019-04-03 23:44 | RAD ---
Exam: Chest 2 views INDICATION: Hyperglycemia TECHNIQUE: Frontal and lateral views the chest Comparisons: 03/21/2019 FINDINGS: The cardiomediastinal silhouette and pulmonary vessels are within normal limits. The lung and pleural spaces are clear. IMPRESSION: No acute cardiopulmonary process. Electronically signed by: Juice Marie MD (04/03/2019 11:41 PM) [id number]
[2019-04-04] MEDS ORDERED: ONDANSETRON PF 4 MG/2 ML VIAL. IV PRN (00:15)
[2019-04-04] MEDS ORDERED: ACETAMINOPHEN 325 MG TABLET PO PRN (00:15)
[2019-04-04 01:04] VITALS: BP 146/76
[2019-04-04] MEDS: IV RINGERS SOLUTION,LACTATED 1,000 ML IV SCH ×3 (01:54→11:05)
[2019-04-04] MEDS ORDERED: INSULIN GLARGINE SYRINGE. SQ SCH (02:00)
--- NOTE | 2019-04-04 02:00 | NUR ---
Pt admitted @ 0105 from ER via EMS to ICU bed 3, m/s overflow. Pt presents A&OX3 and denies complaints of pain. A full assessment completed and a complete history obtained, pt poor historian with dates and vague history. Oriented pt to unit, nurse, call light, and POC. V/U stated. Since admit, pt very anxious about blood sugar levels. Pt has her own glucometer implanted device, and she is checking her machine every couple minutes to see her blood sugar. Pt is very anxious with any small rise or fall of the value. This RN did lengthy education about insulin, previous BS values and current BS values and the appropriate treatment for those at this time. Pt thinks she needs to treat every value without allowing time in between to evaluate effectiveness. pt needs reinforcement for this teaching. Will monitor.
[2019-04-04 05:47] VITALS: BP 123/51
[2019-04-04 07:00] VITALS: BP 130/64
[2019-04-04 07:00] LABS: BASO % 0 % (0-3); EOS # 0.1 x10^3/uL (0.0-0.7); EOS % 1 % (0-3); HEMATOCRIT 31.1 % (36.0-47.0); LYMPH # 1.4 x10^3/uL (1.0-4.8); LYMPH % 22 % (24-48); MEAN CORPUSCULAR HEMOGLOBIN 29 pg (25-35); MEAN CORPUSCULAR HGB CONC 32 g/dL (31-37); MEAN CORPUSCULAR VOLUME 90 fL (79-100); MONO # 0.4 x10^3/uL (0.0-1.1); MONO % 7 % (0-9); NEUT # 4.6 x10^3uL (1.8-7.7); NEUT % 70 % (31-73); PLATELET COUNT 311 x10^3/uL (140-400); RED BLOOD COUNT 3.45 x10^6/uL (3.50-5.40); RED CELL DISTRIBUTION WIDTH 14.9 % (11.5-14.5); WHITE BLOOD COUNT 6.6 x10^3/uL (4.0-11.0)
[2019-04-04 07:14] LABS: CALCIUM 8.1 mg/dL (8.5-10.1); CREATININE 0.7 mg/dL (0.6-1.0); GFR 82.7; POTASSIUM 3.3 mmol/L (3.5-5.1)
[2019-04-04] MEDS ORDERED: INSULIN LISPRO 300 UNITS/3 ML VIAL. SQ SCH (08:00)
[2019-04-04] MEDS ORDERED: DEXTROSE 50% 25 GM / 50ML DISP.SYRIN. IV PRN ×2 (08:00)
--- NOTE | 2019-04-04 08:00 | NUR ---
reviewed poc with pt regarding her glucose monitor and our glucometer. Pt's glucose monitor is on her right upper arm, which is the same side that her IV is that has LR infusing. Explained to pt and her significant other how the IVF can cause the 50 point discrepancy between meters. Pt is wanting to be discharged today. Awaiting on Dr. Vigil to make rounds. pt verbalized agreement of poc.
[2019-04-04] MEDS: INSULIN LISPRO 300 UNITS/3 ML VIAL. SQ SCH ×2 (10:08→12:00)
[2019-04-04 11:00] VITALS: BP 122/58
[2019-04-04] MEDS ORDERED: POTASSIUM CHLORIDE 20 MEQ TABLET.ER. PO ONE (11:30)
[2019-04-04] MEDS ORDERED: POTASSIUM BICARB 20 MEQ EFFERVESCENT TABLET. FT SCH (11:30)
[2019-04-04] MEDS ORDERED: MAGNESIUM OXIDE 400 MG TABLET PO SCH (12:00)
[2019-04-04] MEDS ORDERED: POTASSIUM CHLORIDE 10MEQ 100 ML IV SCH (12:00)
--- NOTE | 2019-04-04 12:45 | NUR ---
Dr. Vigil here seeing pt, pt is requesting to be discharged. Glucose reading is [address] Vigil did not change pt's medications. Pt will be discharged home.
[2019-04-04] MEDS ORDERED: INSU100C SQ (13:12)
[2019-04-04] MEDS ORDERED: INSU100I13 SQ (13:12)
[2019-04-04] MEDS ORDERED: METOCLOPRAMIDE 10 MG TABLET PO PRN (13:15)
--- NOTE | 2019-04-04 13:45 | NUR ---
Reviewed discharged instructions with pt and significant other, IV dc'd. Pt refused wheelchair upon discharge, pt ambulated to pov with significant other.
--- NOTE | 2019-04-04 14:03 | SSS ---
ADMIT DATE: HISTORY OF PRESENT ILLNESS: The patient is a 68-year-old female patient, who was known to have longstanding type 1 diabetes and who came as her blood sugar has been in the 400s and 500s. When she came to the Emergency Room, her blood sugar was 314. Urinalysis showed that she has 11-20 wbc's, moderate amount of bacteria and large amount of glucose, small amount of blood, negative for nitrite. Her toxic screen was negative and her serology showed that she was negative for influenza A and B. She was basically started on IV fluid together with Lantus insulin 50 units at bedtime and NovoLog insulin as her insulin sliding scale and basically her blood sugar has been steadily improving and has been well within a reasonable range, in the 150-200. PAST MEDICAL HISTORY: Significant for type 1 diabetes for over 45 years. She has peripheral neuropathy, multiple episodes of infection with resultant left second toe amputation, right big toe amputation, partial amputation of the right second toe amputation. She also has bilateral cataract extraction. PAST SURGICAL HISTORY: Significant for bilateral cataract extraction, left second toe amputation, right first big toe amputation, right partial second toe amputation. She is status post cholecystectomy, esophagogastroduodenoscopy and colonoscopy. ALLERGIES: She is allergic to PENICILLIN as well as CODEINE. FAMILY HISTORY: She has older sisters that are alive in [place], [place]. Her father in his 80s with dementia and mother in her 80s due to cerebrovascular accident. SOCIAL HISTORY: She lives with her significant other for the last 25 years. She has 1 son and lives here. One daughter lives in [place]. She is an ex-smoker, quit smoking about 35 years ago. She does not drink alcohol or use any recreational drugs. She worked for [employer]. REVIEW OF SYSTEMS: The patient had bilateral cataract extraction, but denied any glaucoma or macular degeneration. Denied any earache, tinnitus or sensorineural deafness. Denied any nosebleeds, stuffy nose or postnasal drip. Denied any sore throat, sore tongue, throat ache, hoarseness of voice or difficulty swallowing. She denied any nausea, vomiting, diarrhea or constipation. Denied any hematemesis, melena or hematochezia. Denied any dysuria, frequency or hematuria. Denied chest pain, shortness of breath, orthopnea, paroxysmal nocturnal dyspnea. MEDICATIONS: She is currently on following medications: She is currently on pravastatin 40 mg at bedtime, metoprolol succinate 12.5 mg once a day, metoclopramide 10 mg at bedtime, metoclopramide 1 p.o. premeals and she is on Lantus insulin 15 units at bedtime. She is on NovoLog insulin advancing sliding scale. PHYSICAL EXAMINATION: GENERAL: On arrival to the Emergency Room, she looked well and was clearly in no apparent respiratory distress. She was pale, extremely cachectic, but no jaundice, cyanosis or thyromegaly. No jugular venous distention. No limb edema. VITAL SIGNS: Her heart rate was 79, blood pressure is 131/64, temperature was 97.7, respiratory rate was 18 and oxygen saturation was 96% on room air. HEAD, EYES, EARS, NOSE AND THROAT: Showed normocephalic, atraumatic. NECK: Supple. HEART: Showed normal first and second heart sounds. No gallop or murmur. CHEST: Clear to auscultation. No crepitation or rhonchi. ABDOMEN: Distended, soft, nontender. No guarding or rigidity. No organomegaly. All hernial orifice intact. Bowel sounds normal. NEUROLOGIC: She is awake, alert, responding appropriately. All cranial nerves intact. EXTREMITIES: She moves extremities without difficulty. She ambulates without assistance or assistive devices. LABORATORY DATA: Her lab work on arrival showed a white cell count was 4800, hemoglobin 9.7, hematocrit 30, MCV 90 and platelet count 359,000. Her serum sodium was 143, potassium 3.7, chloride 105, bicarbonate 28, anion gap of 10, BUN 27, creatinine 1, estimated GFR was 55 mL per minute. Her glucose was 114. Calcium was 8.8, magnesium was 2. Total bilirubin, AST, ALT, alkaline phosphatase were normal. Total protein was 7, albumin was 3.5. Her prothrombin time, INR and aPTT are normal. Urinalysis showed the urine was yellow, cloudy with a pH of 5.5, specific gravity 1.015. The urine was negative for protein. There was large amount of glucose, trace of ketones, small amount of blood, negative for nitrite and leukocyte esterase. There is 1-2 rbc's, 11-20 wbc's, moderate amount of bacteria. Her toxic screen was negative and her influenza A and B were negative. Her chest x-ray showed that the cardiomediastinal silhouette and pulmonary vessels are within normal limits. The lungs and pleural spaces are clear. ASSESSMENT AND PLAN: The patient was continued with IV fluid and continued on her Lantus 15 units and insulin sliding scale and her blood sugar remained stable and therefore, a decision was made to discharge her home to continue on her current medication. FINAL DISCHARGE DIAGNOSES: Poorly controlled type 1 diabetes mellitus, diabetic peripheral neuropathy, hypertension and diabetic gastroparesis. MARCO FONTAINE MD DR: DELORIS/nina JOB#: [id number] / [id number]
[2019-04-04] MEDS ORDERED: METOCLOPRAMIDE 10 MG TABLET PO SCH (21:00)
[2019-04-04] MEDS ORDERED: ATORVASTATIN CALCIUM 10 MG TABLET. PO SCH (21:00)
[2019-04-04 22:07] LABS: HEMOGLOBIN A1C 7.5 % (4.8-5.6)
[2019-04-05] MEDS ORDERED: METOPROLOL SUCC 24HR ER 25 MG TAB.ER.24H. PO SCH (09:00)
== END 2019-04-04 13:45 | disposition home or self-care (01) | DRG 74 ==
LOC: ER 21:16 → ICU 04-04 00:01
PROVIDERS: ADMIT Hospitalist; ATTEND Internal Medicine
DX: E10.43 Type 1 diabetes mellitus with diabetic autonomic (poly)neuropathy (principal); E10.65 Type 1 diabetes mellitus with hyperglycemia; E86.0 Dehydration; D64.9 Anemia, unspecified; E10.42 Type 1 diabetes mellitus with diabetic polyneuropathy; K31.84 Gastroparesis; I10 Essential (primary) hypertension; Z98.42 Cataract extraction status, left eye; Z98.41 Cataract extraction status, right eye; Z90.49 Acquired absence of other specified parts of digestive tract; Z89.421 Acquired absence of other right toe(s); Z87.891 Personal history of nicotine dependence; Z87.442 Personal history of urinary calculi; Z86.73 Personal history of transient ischemic attack (TIA), and cerebral infarction without residual deficits; Z83.3 Family history of diabetes mellitus; Z82.3 Family history of stroke; Z79.4 Long term (current) use of insulin; Z88.5 Allergy status to narcotic agent; Z88.0 Allergy status to penicillin
CPT/HCPCS: 36415; 71046; 80048; 80076; 80307; 81001; 82550; 82947; 83036; 83605; 83690; 83735; 83880; 84443; 84484; 85025; 85610; 85730; 87040; 87086; 87804; 93005; 96360; 96361; 99285; J1815; J2405; J7120; J7030

== ENCOUNTER 2019-10-06 13:40 | Emergency (ER) | payer MEDICARE, MEDICAID ==
[~2019-10-06] VITALS: Ht 167.6 cm; Wt 52.2 kg
[~2019-10-06 13:40] MED LIST changes: +INSU100C SQ
[2019-10-06] MEDS ORDERED: IV NORMAL SALINE 1,000ML 1,000 ML IV ONE (14:15)
[2019-10-06] MEDS ORDERED: DEXTROSE 50% 25 GM / 50ML DISP.SYRIN. IV ONE (14:30)
--- NOTE | 2019-10-06 14:34 | RAD ---
Single AP view of the chest. Comparison: 04/03/2019. Indication: Dyspnea Findings: The heart is not enlarged. There is no pneumothorax or effusion. No air space or interstitial disease. Impression: 1. No acute cardiopulmonary process. Electronically signed by: Richi Barragan MD (10/06/2019 2:31 PM) [id number]
[2019-10-06 14:44] LABS: CALCIUM 9.1 mg/dL (8.5-10.1); CREATININE 1.3 mg/dL (0.6-1.0); GFR 40.4; POTASSIUM 4.2 mmol/L (3.5-5.1)
[2019-10-06 14:45] LABS: BASO % 0 % (0-3); EOS # 0.2 x10^3/uL (0.0-0.7); EOS % 2 % (0-3); HEMATOCRIT 35.5 % (36.0-47.0); HEMOGLOBIN 11.6 g/dL (12.0-15.5); LYMPH # 2.1 x10^3/uL (1.0-4.8); LYMPH % 26 % (24-48); MEAN CORPUSCULAR HEMOGLOBIN 30 pg (25-35); MEAN CORPUSCULAR HGB CONC 33 g/dL (31-37); MEAN CORPUSCULAR VOLUME 91 fL (79-100); MONO # 0.6 x10^3/uL (0.0-1.1); MONO % 7 % (0-9); NEUT # 5.2 x10^3uL (1.8-7.7); NEUT % 65 % (31-73); PLATELET COUNT 315 x10^3/uL (140-400); RED CELL DISTRIBUTION WIDTH 16.4 % (11.5-14.5); WHITE BLOOD COUNT 8.1 x10^3/uL (4.0-11.0)
[2019-10-06 15:00] LABS: ALBUMIN 3.5 g/dL (3.4-5.0); ALBUMIN/GLOBULIN RATIO 0.8 (1.0-1.7); TOTAL BILIRUBIN 0.3 mg/dL (0.2-1.0); TOTAL PROTEIN 7.7 g/dL (6.4-8.2)
--- NOTE | 2019-10-06 15:22 | PHYS DOC ---
Past History Past Medical History: Diabetes, Hypertension, Kidney Stones, Stroke Past Surgical History: Cholecystectomy, Other Additional Past Surgical Histo: 3 stents Smoking: Non-smoker Alcohol Use: None Drug Use: None General Adult EDM: Chief Complaint: SHORTNESS OF BREATH HPI: HPI: Patient is a [age] year old [sex] who presents with [] Review of Systems: Review of Systems: Constitutional: Denies fever or chills Eyes: Denies change in visual acuity HENT: Denies nasal congestion or sore throat Respiratory: Denies cough or shortness of breath Cardiovascular: Denies chest pain or edema GI: Denies abdominal pain, nausea, vomiting, bloody stools or diarrhea : Denies dysuria Musculoskeletal: Denies back pain or joint pain Integument: Denies rash Neurologic: Denies headache, focal weakness or sensory changes Endocrine: Denies polyuria or polydipsia Lymphatic: Denies swollen glands Psychiatric: Denies depression or anxiety Heart Score: Risk Factors: Risk Factors: DM, Current or recent (<one month) smoker, HTN, HLP, family history of CAD, obesity. Risk Scores: Score 0 - 3: 2.5% MACE over next 6 weeks - Discharge Home Score 4 - 6: 20.3% MACE over next 6 weeks - Admit for Clinical Observation Score 7 - 10: 72.7% MACE over next 6 weeks - Early Invasive Strategies Current Medications: Current Meds: Current Medications Medications (Trade) Dose Ordered Sig/Kacey Start Time Stop Time Status Last Admin Dose Admin Dextrose (Dextrose 50%-Water Syringe) 25 gm 1X ONCE 10/06/19 14:30 10/06/19 14:31 DC 10/06/19 14:36 25 GM Sodium Chloride 1,000 ml @ 1,000 mls/hr 1X ONCE 10/06/19 14:15 10/06/19 15:14 DC 10/06/19 14:33 1,000 MLS/HR Allergies: Allergies: Allergies Coded Allergies Type Severity Reaction Last Updated Verified Penicillins Allergy Mild 11/30/16 Yes codeine Allergy Mild 11/30/16 Yes Physical Exam: PE: Constitutional: Well developed, well nourished, no acute distress, non-toxic appearance. [] HENT: Normocephalic, atraumatic, bilateral external ears normal, oropharynx moist, no oral exudates, nose normal. [] Eyes: PERRLA, EOMI, conjunctiva normal, no discharge. [] Neck: Normal range of motion, no tenderness, supple, no stridor. [] Cardiovascular:Heart rate regular rhythm, no murmur [] Lungs & Thorax: Bilateral breath sounds clear to auscultation [] Abdomen: Bowel sounds normal, soft, no tenderness, no masses, no pulsatile masses. [] Skin: Warm, dry, no erythema, no rash. [] Back: No tenderness, no CVA tenderness. [] Extremities: No tenderness, no cyanosis, no clubbing, ROM intact, no edema. [] Neurologic: Alert and oriented X 3, normal motor function, normal sensory function, no focal deficits noted. [] Psychologic: Affect normal, judgement normal, mood normal. [] Current Patient Data: Labs: Laboratory Tests Test 10/06/19 14:15 10/06/19 14:32 White Blood Count 8.1 x10^3/uL (4.0-11.0) Red Blood Count 3.90 x10^6/uL (3.50-5.40) Hemoglobin 11.6 g/dL (12.0-15.5) L Hematocrit 35.5 % (36.0-47.0) L Mean Corpuscular Volume 91 fL (79-100) Mean Corpuscular Hemoglobin 30 pg (25-35) Mean Corpuscular Hemoglobin Concent 33 g/dL (31-37) Red Cell Distribution Width 16.4 % (11.5-14.5) H Platelet Count 315 x10^3/uL (140-400) Neutrophils (%) (Auto) 65 % (31-73) Lymphocytes (%) (Auto) 26 % (24-48) Monocytes (%) (Auto) 7 % (0-9) Eosinophils (%) (Auto) 2 % (0-3) Basophils (%) (Auto) 0 % (0-3) Neutrophils # (Auto) 5.2 x10^3uL (1.8-7.7) Lymphocytes # (Auto) 2.1 x10^3/uL (1.0-4.8) Monocytes # (Auto) 0.6 x10^3/uL (0.0-1.1) Eosinophils # (Auto) 0.2 x10^3/uL (0.0-0.7) Basophils # (Auto) 0.0 x10^3/uL (0.0-0.2) Sodium Level 143 mmol/L (136-145) Potassium Level 4.2 mmol/L (3.5-5.1) Chloride Level 104 mmol/L (98-107) Carbon Dioxide Level 33 mmol/L (21-32) H Anion Gap 6 (6-14) Blood Urea Nitrogen 28 mg/dL (7-20) H Creatinine 1.3 mg/dL (0.6-1.0) H Estimated GFR (Cockcroft-Gault) 40.4 BUN/Creatinine Ratio 22 (6-20) H Glucose Level 59 mg/dL (70-99) L Lactic Acid Level 1.5 mmol/L (0.4-2.0) Calcium Level 9.1 mg/dL (8.5-10.1) Magnesium Level 2.0 mg/dL (1.8-2.4) Total Bilirubin 0.3 mg/dL (0.2-1.0) Aspartate Amino Transferase (AST) 28 U/L (15-37) Alanine Aminotransferase (ALT) 27 U/L (14-59) Alkaline Phosphatase 123 U/L (46-116) H Creatine Kinase 75 U/L (26-192) Creatine Kinase MB (Mass) 1.8 ng/mL (0.0-3.6) Creatine Kinase MB Relative Index 2.4 % (0-4) Troponin I Quantitative < 0.017 ng/mL (0-0.055) DF-Ngw-C-Type Natriuretic Peptide 789 pg/mL (0-124) H Total Protein 7.7 g/dL (6.4-8.2) Albumin 3.5 g/dL (3.4-5.0) Albumin/Globulin Ratio 0.8 (1.0-1.7) L Glucose (Fingerstick) 58 mg/dL (70-99) L EKG: EKG: @1406 NSR at 77bpm, NO ST elevation, QRS 86ms, QT/QTc 370/420ms, incomplete RBBB Radiology/Procedures: Radiology/Procedures: PROCEDURE: PORTABLE CHEST 1V Single AP view of the chest. Comparison: 04/03/2019. Indication: Dyspnea Findings: The heart is not enlarged. There is no pneumothorax or effusion. No air space or interstitial disease. Impression: 1. No acute cardiopulmonary process. Electronically signed by: Richi Barragan MD (10/06/2019 2:31 PM) [id number] Course & Med Decision Making: Course & Med Decision Making Pertinent Labs and Imaging studies reviewed. (See chart for details) [] Jozef Disclaimer: Jozef Disclaimer: This electronic medical record was generated, in whole or in part, using a voice recognition dictation system. Departure Departure: Impression: Primary Impression: Bronchitis Additional Impressions: Hypoglycemia Suspected 2019 novel coronavirus infection Disposition: HOME/RESIDENCE PRIOR TO ADM Condition: STABLE Referrals: ALEJANDRO GLASS MD (PCP) DAREN BEDOYA MD Patient Instructions: Bronchitis, [id number], Hypoglycemia (Low Blood Sugar) Additional Instructions: You have been tested for or diagnosed with COVID-19. It is an infection caused by a new type of coronavirus. COVID-19 will cause cold-like or mild flu symptoms in most. It can cause more severe symptoms like problems breathing in some. There is no treatment for COVID-19. The body will clear the infection over time. Self-care will help to ease discomfort. Steps to Take: Self-Care Rest as needed. Healthy habits may help you feel better. Steps include: Choose healthy foods including fruits and vegetables. Drink water throughout the day. Get plenty of sleep each night. If you smoke, try to quit. It may ease breathing. Avoid alcohol. Keep Others Healthy The virus can spread to others. Droplets are released every time you sneeze or cough. The droplets can get into the mouth, nose, or eyes of people near you and lead to infection. To lower the chances of spreading COVID-19 to others: Stay at home until your doctor has said it is safe to leave. If you tested positive this will mean staying isolated until both of the following are true: At least 7 days have passed since the start of illness. You are free of fever for at least 72 hours without the use of medicine. During this time: - Avoid public areas, events, or transportation. Do not return to work or school until your doctor has said it is safe to do so. - Call ahead if you need to go to a medical center. Let them know you may have COVID-19. It will help them guide you where to go. They may also ask you to wear a facemask when you come to the office. - If you call for emergency medical services, let them know you may have COVID- 19. While at home: - Try to avoid close contact with others. Stay about 6 feet away. - If possible, spend most of your time in a separate room from others. - Use a face mask if you will be in close contact with others such as sharing a room or vehicle. - Have someone wipe down common surfaces in the home. Use household applied behavior science specialist every day on areas like doorknobs, counters, or sinks. - Cough or sneeze into a tissue. Throw the tissue away right after use. If a tissue is not available, cough or sneeze into your elbow. - Wash your hands often. Wash them after sneezing or coughing. Use soap and water and wash for at least 20 seconds. Alcohol based hand duct cleaner can be used if soap and water is not available. - Do not prepare food for others. Avoid sharing personal items like forks, spoons, or toothbrushes. - Avoid close contact with pets while you are sick. There is no evidence of the virus passing to pets. This is a safety step until more is known about this virus. Isolation can be frustrating. Social interaction can help. Keep in touch with friends and family through phone and tech options. You can still interact with others in your home, just keep a safe distance of about 6 feet. Follow-up: Your doctors office will check in with you to see if there are any changes in your health. You may be asked to keep track of symptoms to share with them. They will also l et you know when you are clear to be in public again. Problems to Look Out For: Contact your doctor if your recovery is not going as you expect. Get emergency care if you have problems such as: - Trouble breathing - Nonstop chest pain or pressure - Changes in awareness, confusion, or problems waking - Lips or face have bluish color - Worsening of symptoms If you think you have an emergency, call for emergency medical services right away. As taken from [facility] Prednisone (PREDNISONE) 20 Mg Tablet 2 TAB PO BID for Bronchitis, #10 TAB Prov: ANIRUDH SABILLON DO 10/06/19 Albuterol Sulfate (PROAIR HFA INHALER) 8.5 Gm Hfa.aer.ad 2 PUFF IH PRN Q4-6HRS PRN for wheezing for 21 Days, #1 INHALER 0 Refills Prov: ANIRUDH SABILLON DO 10/06/19 Justification of Admission: Justification of Admission: Justification of Admission Dx: N/A ANIRUDH SABILLON DO Oct 06, 2019 15:22
--- NOTE | 2019-10-06 15:38 | EKG ---
[address] [address] Test Date: 2019-10-06 Test Time: 14:06:01 Pat Name: LEILANI MUÑOZ Department: Room: Gender: F Claims Analyst: GRETA : [id number] Requested By: ANIRUDH SABILLON Order Number: [id number] Reading MD: Measurements Intervals [place] Rate: 77 P: 42 WI: 148 QRS: 74 QRSD: 86 T: 66 QT: 370 QTc: 420 Interpretive Statements SINUS RHYTHM S1,S2,S3 PATTERN INCOMPLETE RIGHT BUNDLE BRANCH BLOCK OTHERWISE NORMAL ECG RI6.02 No previous ECG available for comparison
[2019-10-06 15:45] LABS: COLOR,URINE AMBER
[2019-10-06 15:46] LABS: CLARITY,URINE HAZY; GLUCOSE,URINE 500 mg/dL (NEG)
[2019-10-06 15:47] LABS: BACTERIA,URINE FEW /HPF (0-FEW); NITRITE,URINE NEG (NEG); SQUAMOUS EPITHELIAL CELL,UR OCC /LPF; UROBILINOGEN,URINE 0.2 mg/dL (0.2 mg/dL)
[2019-10-06 15:54] LABS: BILIRUBIN,URINE NEG (NEG)
[2019-10-06 16:27] VITALS: BP 143/71
[2019-10-06] MEDS ORDERED: ALBU2.5V8 IH (16:53)
[2019-10-06] MEDS ORDERED: PRED20TA PO (16:53)
--- NOTE | 2019-10-10 10:06 | NUR ---
IP: attempt to notify patient of COVID result, no response, unable to leave call back message.
== END 2019-10-06 17:03 | disposition home or self-care (01) ==
LOC: ER 13:40
DX: J40 Bronchitis, not specified as acute or chronic (principal); E11.65 Type 2 diabetes mellitus with hyperglycemia; I10 Essential (primary) hypertension; Z20.828 Contact with and (suspected) exposure to other viral communicable diseases; Z87.442 Personal history of urinary calculi; Z86.73 Personal history of transient ischemic attack (TIA), and cerebral infarction without residual deficits; Z88.0 Allergy status to penicillin; Z88.5 Allergy status to narcotic agent
CPT/HCPCS: 36415; 71045; 80053; 81001; 82553; 82947; 83605; 83735; 83880; 84484; 85025; 87086; 93005; 96361; 96374; 99285; J7030; U0003

== ENCOUNTER 2020-01-05 13:03 | Emergency (ER) | payer MEDICARE, MEDICAID ==
[~2020-01-05] VITALS: Ht 167.6 cm; Wt 52.2 kg
[~2020-01-05 13:03] MED LIST changes: +ALBU2.5V8 IH; +PRED20TA PO
--- NOTE | 2020-01-05 13:54 | PHYS DOC ---
Past History Past Medical History: CAD, Diabetes, Hypertension, Kidney Stones, Stroke Past Surgical History: Cholecystectomy, Other Additional Past Surgical Histo: 3 stents Smoking: Non-smoker Alcohol Use: None Drug Use: None General Adult EDM: Chief Complaint: SHORTNESS OF BREATH HPI: HPI: 69-year-old female past medical history significant for CVA, CAD, hypertension, and diabetes, presents the ED with complaints of exertional shortness of breath for the past 4 days, sxs started with nasal congestion. Patient reports she is concerned she has pneumonia-similar sxs prior were pna. Influenza is not up-to-date. No history of underlying lung disease. Review of Systems: Review of Systems: Constitutional: Denies fever or chills Eyes: Denies change in visual acuity HENT: Denies rhinorrhea or sore throat Respiratory: Denies cough or hemoptysis Cardiovascular: Denies chest pain or edema or syncope GI: Denies abdominal pain, nausea, vomiting, bloody stools or diarrhea : Denies dysuria Musculoskeletal: Denies back pain or joint pain Integument: Denies rash Neurologic: Denies headache, focal weakness or sensory changes Endocrine: Denies polyuria or polydipsia Lymphatic: Denies swollen glands Psychiatric: Denies depression or anxiety Allergies: Allergies: Allergies Coded Allergies Type Severity Reaction Last Updated Verified Penicillins Allergy Mild 11/30/16 Yes codeine Allergy Mild 11/30/16 Yes Physical Exam: PE: Constitutional: Well developed, well nourished, no acute distress, non-toxic appearance. HENT: Normocephalic, atraumatic, +maxillary sinus pressure, no nasal voice Eyes: EOMI, conjunctiva normal, no discharge. Neck: Normal range of motion, supple, Cardiovascular: S1/2 present, regular rhythm Lungs & Thorax: Speaking in full sentences, bilateral equal chest rise, no tachypnea or increased work of breathing Abdomen: soft, no tenderness, Skin: Warm, dry, no erythema, no rash. [] Back: No tenderness, no CVA tenderness. [] Extremities: No tenderness, no cyanosis, no edema Neurologic: Alert and oriented X 3, normal motor function, normal sensory function, no focal deficits noted. [] Psychologic: Affect normal, judgement normal, mood normal. [] Current Patient Data: Vital Signs: Vital Signs Date Time Temp Pulse Resp B/P (MAP) Pulse Ox O2 Delivery O2 Flow Rate FiO2 01/05/20 13:15 98.5 98 16 160/42 (81) 99 Room Air EKG: EKG: Sinus rhythm at 93 bpm, no axis deviation, normal intervals, T wave inversion V2, no ST elevations or ST depressions Radiology/Procedures: Radiology/Procedures: IMAGING REPORT Signed PATIENT: LEILANI MUÑOZ ACCOUNT: [id number] : 1950 LOCATION: ER AGE: 69 SEX: F EXAM STATUS: REG ER ORD. PHYSICIAN: ANGELA HERNANDEZ DO REASON: soa PROCEDURE: PORTABLE CHEST 1V Examination: PORTABLE CHEST 1V History: Reason: soa / Spl. Instructions: / History: Comparison/Correlation: 03/21/2019, 04/03/2019, 10/06/2019 Findings: Portable frontal view chest obtained. Heart size and pulmonary vasculature are normal. No infiltrate or pleural effusion. Left apical pleural thickening is present. Bony structures are grossly unremarkable. Impression: No infiltrate. Electronically signed by: Harry Bull MD (01/05/2020 2:01 PM) [facility] DICTATED AND SIGNED BY: HARRY BULL MD DATE: 01/05/20 1401 CC: ALEJANDRO GLASS MD; ANGELA HERNANDEZ DO ~MTH0 0 IMAGING REPORT Signed PATIENT: LEILANI MUÑOZ ACCOUNT: [id number] : 1950 LOCATION: ER AGE: 69 SEX: F EXAM STATUS: REG ER ORD. PHYSICIAN: ANGELA HERNANDEZ DO REASON: soa PROCEDURE: CT ANGIOGRAPHY CHEST Examination: CT ANGIOGRAPHY CHEST History: soa Comparison/Correlation: None Findings: Axial images of the chest were obtained following IV contrast pulmonary arteriography protocol utilized. Sagittal and coronal reformatted images were obtained. Maximum intensity projection imaging provided. Excellent pulmonary arterial opacification is present. No PE identified. No focal infiltrate or effusion. Biapical pleural thickening is present. Tracheobronchial tree is unremarkable. No definite or significant emphysematous findings. No pneumothorax. Degenerative disc space narrowing of the cervical spine is evident. Significant splenic calcification and to lesser extent hepatic calcification is noted. Left extrarenal pelvis. Right extra renal pelvis noted. Right renal simple cyst is partially visualized without suspicious qualities identified requiring further assessment. Visualized aorta is unremarkable. Moderate quantity of debris in stomach present. Impression: No PE or infiltrate. PQRS Compliance Statement: One or more of the following individualized dose reduction techniques were utilized for this examination: 1. Automated exposure control 2. Adjustment of the mA and/or kV according to patient size 3. Use of iterative reconstruction technique Electronically signed by: Harry Bull MD (01/05/2020 4:04 PM) [facility] DICTATED AND SIGNED BY: HARRY BULL MD DATE: 01/05/20 2748 CC: ALEJANDRO GLASS MD; ANGELA HERNANDEZ DO ~MTH0 0 Heart Score: Risk Factors: Risk Factors: DM, Current or recent (<one month) smoker, HTN, HLP, family history of CAD, obesity. Risk Scores: Score 0 - 3: 2.5% MACE over next 6 weeks - Discharge Home Score 4 - 6: 20.3% MACE over next 6 weeks - Admit for Clinical Observation Score 7 - 10: 72.7% MACE over next 6 weeks - Early Invasive Strategies Course & Med Decision Making: Course & Med Decision Making Pertinent Labs and Imaging studies reviewed. (See chart for details) COVID-19 CRITERIA: The patient was evaluated during the global COVID-19 p andemic, and that diagnosis was suspected/considered upon their initial presentation. Their evaluation, treatment and testing was consistent with current guidelines for patients who present with complaints or symptoms that may be related to COVID-19. Concern for URI < 1 week with maxillary sinus pressure. Covid test pending. No PE on CTA. Neg trop. Pt very well appearing. Influenza negative. GILBERT vs CKD. May need antibiotics in a week if sinus pressure persists. Strict ED return precautions were given for return to ED immediately if your oxygen level drops below 90% (purchase a pulse oximetry at a medical supply store), difficulties breathing with increased work of breathing, fever, chest pain or stroke-like symptoms.. Encouraged urgent outpatient follow-up with PMD. Life-threatening processes were considered but are low suspicion at this time, given history and physical exam. Pt was educated on all prescription medications and adverse effects. All patient's questions were answered and pt was stable at time of discharge. Life/limb-threatening differential includes but is not limited to, ACS, dysrhythmia, pneumothorax or hemothorax, pulmonary embolus, pneumonia, bronchoconstriction, pulmonary edema, angioedema, epiglottitis, tracheitis, Sergio's angina, RPA/MORTGAGE UNDERWRITER, anaphylaxis, angioedema, cardiac tamponade or murmurs, pericarditis, myocarditis, poisoning or toxicity, sepsis or autoimmune/neurologic disease. I spoken with the patient and her caregivers. I explained the patient's condition, diagnoses and treatment plan based on the information available to me at this time. I have answered the patient and her caregiver's questions and addressed any concerns. The patient and her caregivers have a good understanding of patient's diagnosis, condition and treatment plan as can be expected at this point. Vital signs have been stable. Patient's condition is stable and appropriate for discharge from the emergency department. Patient will pursue further outpatient evaluation with primary care physician or other designated or consulting physician as outlined in the discharge instructions. The patient and/or caregivers are agreeable to this plan of care and follow-up instructions have been explained in detail. The patient and/or caregivers have received these instructions in written form and have expressed an understanding of the discharge instructions. The patient and/or caregivers are aware that any significant change of condition or worsening of symptoms should prompt immediate return to this or the closest emergency department or call to 911. Jozef Disclaimer: Jozef Disclaimer: This electronic medical record was generated, in whole or in part, using a voice recognition dictation system. Departure Departure: Impression: Primary Impression: Sinusitis Additional Impressions: URI (upper respiratory infection) Person under investigation for COVID-19 Disposition: 01 DC HOME SELF CARE/HOMELESS Condition: STABLE Referrals: ALEJANDRO GLASS MD (PCP) in 1 week if symptoms persist, may need antibiotics repeat your renal function in 1 month w/pmd Patient Instructions: Sinusitis Additional Instructions: You have been tested for or diagnosed with COVID-19. It is an infection caused by a new type of coronavirus. COVID-19 will cause cold-like or mild flu symptoms in most. It can cause more severe symptoms like problems breathing in some. There is no treatment for COVID-19. The body will clear the infection over time. Self-care will help to ease discomfort. Steps to Take: Self-Care Rest as needed. Healthy habits may help you feel better. Steps include: Choose healthy foods including fruits and vegetables. Drink water throughout the day. Get plenty of sleep each night. If you smoke, try to quit. It may ease breathing. Avoid alcohol. Keep Others Healthy The virus can spread to others. Droplets are released every time you sneeze or cough. The droplets can get into the mouth, nose, or eyes of people near you and lead to infection. To lower the chances of spreading COVID-19 to others: Stay at home until your doctor has said it is safe to leave. If you tested positive this will mean staying isolated until both of the following are true: At least 7 days have passed since the start of illness. You are free of fever for at least 72 hours without the use of medicine. During this time: - Avoid public areas, events, or transportation. Do not return to work or school until your doctor has said it is safe to do so. - Call ahead if you need to go to a medical center. Let them know you may have COVID-19. It will help them guide you where to go. They may also ask you to wear a facemask when you come to the office. - If you call for emergency medical services, let them know you may have COVID- 19. While at home: - Try to avoid close contact with others. Stay about 6 feet away. - If possible, spend most of your time in a separate room from others. - Use a face mask if you will be in close contact with others such as sharing a room or vehicle. - Have someone wipe down common surfaces in the home. Use household vp clinical every day on areas like doorknobs, counters, or sinks. - Cough or sneeze into a tissue. Throw the tissue away right after use. If a tissue is not available, cough or sneeze into your elbow. - Wash your hands often. Wash them after sneezing or coughing. Use soap and water and wash for at least 20 seconds. Alcohol based hand shield cleaner can be used if soap and water is not available. - Do not prepare food for others. Avoid sharing personal items like forks, spoons, or toothbrushes. - Avoid close contact with pets while you are sick. There is no evidence of the virus passing to pets. This is a safety step until more is known about this virus. Isolation can be frustrating. Social interaction can help. Keep in touch with friends and family through phone and tech options. You can still interact with others in your home, just keep a safe distance of about 6 feet. Follow-up: Your doctors office will check in with you to see if there are any changes in your health. You may be asked to keep track of symptoms to share with them. They will also let you know when you are clear to be in public again. Problems to Look Out For: Contact your doctor if your recovery is not going as you expect. Get emergency care if you have problems such as: - Trouble breathing - Nonstop chest pain or pressure - Changes in awareness, confusion, or problems waking - Lips or face have bluish color - Worsening of symptoms If you think you have an emergency, call for emergency medical services right away. As taken from [facility],ANGELA Moore DO Jan 05, 2020 13:54
[2020-01-05 14:01] LABS: BASO # 0.1 x10^3/uL (0.0-0.2); BASO % 1 % (0-3); EOS # 0.2 x10^3/uL (0.0-0.7); EOS % 2 % (0-3); HEMATOCRIT 34.1 % (36.0-47.0); LYMPH # 1.9 x10^3/uL (1.0-4.8); LYMPH % 28 % (24-48); MEAN CORPUSCULAR HEMOGLOBIN 30 pg (25-35); MEAN CORPUSCULAR HGB CONC 32 g/dL (31-37); MEAN CORPUSCULAR VOLUME 92 fL (79-100); MONO # 0.4 x10^3/uL (0.0-1.1); MONO % 6 % (0-9); NEUT # 4.3 x10^3uL (1.8-7.7); NEUT % 63 % (31-73); PLATELET COUNT 242 x10^3/uL (140-400); RED CELL DISTRIBUTION WIDTH 14.2 % (11.5-14.5); WHITE BLOOD COUNT 6.8 x10^3/uL (4.0-11.0)
--- NOTE | 2020-01-05 14:04 | RAD ---
Examination: PORTABLE CHEST 1V History: Reason: soa / Spl. Instructions: / History: Comparison/Correlation: 03/21/2019, 04/03/2019, 10/06/2019 Findings: Portable frontal view chest obtained. Heart size and pulmonary vasculature are normal. No infiltrate or pleural effusion. Left apical pleural thickening is present. Bony structures are grossly unremarkable. Impression: No infiltrate. Electronically signed by: Harry Vail MD (01/05/2020 2:01 PM) [facility]
[2020-01-05 14:16] LABS: CALCIUM 8.8 mg/dL (8.5-10.1); CREATININE 1.2 mg/dL (0.6-1.0); GFR 44.3
--- NOTE | 2020-01-05 14:21 | EKG ---
[address] [address] Test Date: 2020-01-05 Test Time: 13:50:17 Pat Name: LEILANI MUÑOZ Department: Room: Gender: F Seo Coordinator: : 1950 Requested By: ANGELA HERNANDEZ Order Number: [id number] Reading MD: Measurements Intervals [place] Rate: 93 P: 42 ND: 160 QRS: 65 QRSD: 88 T: 60 QT: 354 QTc: 443 Interpretive Statements SINUS RHYTHM S1,S2,S3 PATTERN INCOMPLETE RIGHT BUNDLE BRANCH BLOCK OTHERWISE NORMAL ECG RI6.02 No previous ECG available for comparison
[2020-01-05 14:30] LABS: ALBUMIN 3.5 g/dL (3.4-5.0); TOTAL BILIRUBIN 0.1 mg/dL (0.2-1.0)
[2020-01-05 14:43] LABS: INFLUENZA A PATIENT NEGATIVE (NEGATIVE); INFLUENZA B PATIENT NEGATIVE (NEGATIVE)
[2020-01-05] MEDS ORDERED: IOHEXOL 350 MG/ML 100 ML VIAL. IV ONE (15:00)
[2020-01-05] MEDS ORDERED: CONTRAST GIVEN. MC PRN (15:15)
--- NOTE | 2020-01-05 16:07 | RAD ---
Examination: CT ANGIOGRAPHY CHEST History: soa Comparison/Correlation: None Findings: Axial images of the chest were obtained following IV contrast pulmonary arteriography protocol utilized. Sagittal and coronal reformatted images were obtained. Maximum intensity projection imaging provided. Excellent pulmonary arterial opacification is present. No PE identified. No focal infiltrate or effusion. Biapical pleural thickening is present. Tracheobronchial tree is unremarkable. No definite or significant emphysematous findings. No pneumothorax. Degenerative disc space narrowing of the cervical spine is evident. Significant splenic calcification and to lesser extent hepatic calcification is noted. Left extrarenal pelvis. Right extra renal pelvis noted. Right renal simple cyst is partially visualized without suspicious qualities identified requiring further assessment. Visualized aorta is unremarkable. Moderate quantity of debris in stomach present. Impression: No PE or infiltrate. PQRS Compliance Statement: One or more of the following individualized dose reduction techniques were utilized for this examination: 1. Automated exposure control 2. Adjustment of the mA and/or kV according to patient size 3. Use of iterative reconstruction technique Electronically signed by: Harry Vail MD (01/05/2020 4:04 PM) [facility]
[2020-01-05 16:27] VITALS: BP 134/69
--- NOTE | 2020-01-09 10:53 | NUR ---
IP: attempt to notify patient of COVID result, unable to leave callback message.
--- NOTE | 2020-01-09 10:57 | NUR ---
patient notified of COVID result.
== END 2020-01-05 16:27 | disposition home or self-care (01) ==
LOC: ER 13:03
DX: J01.90 Acute sinusitis, unspecified (principal); Z20.828 Contact with and (suspected) exposure to other viral communicable diseases; I25.10 Atherosclerotic heart disease of native coronary artery without angina pectoris; E11.9 Type 2 diabetes mellitus without complications; I10 Essential (primary) hypertension; Z87.442 Personal history of urinary calculi; Z86.73 Personal history of transient ischemic attack (TIA), and cerebral infarction without residual deficits; Z88.0 Allergy status to penicillin; Z88.5 Allergy status to narcotic agent
CPT/HCPCS: 36415; 71045; 71275; 80053; 83880; 84484; 85025; 85379; 87804; 93005; 99285; C9803; Q9967; U0003

== ENCOUNTER 2020-01-29 11:10 | Emergency (ER) | payer MEDICARE, MEDICAID ==
[~2020-01-29] VITALS: Ht 167.6 cm; Wt 50.0 kg
[2020-01-29] MEDS ORDERED: ONDANSETRON PF 4 MG/2 ML VIAL. ONE (11:24)
[2020-01-29] MEDS ORDERED: IV NORMAL SALINE 1,000ML 1,000 ML IV SCH (11:45)
[2020-01-29] MEDS ORDERED: ONDANSETRON PF 4 MG/2 ML VIAL. IVP ONE (11:45)
[2020-01-29 11:57] LABS: BASO % 0 % (0-3); EOS % 0 % (0-3); HEMATOCRIT 39.9 % (36.0-47.0); HEMOGLOBIN 12.7 g/dL (12.0-15.5); LYMPH # 0.8 x10^3/uL (1.0-4.8); LYMPH % 8 % (24-48); MEAN CORPUSCULAR HEMOGLOBIN 30 pg (25-35); MEAN CORPUSCULAR HGB CONC 32 g/dL (31-37); MEAN CORPUSCULAR VOLUME 93 fL (79-100); MONO # 0.8 x10^3/uL (0.0-1.1); MONO % 8 % (0-9); NEUT # 8.3 x10^3uL (1.8-7.7); NEUT % 83 % (31-73); PLATELET COUNT 256 x10^3/uL (140-400); RED CELL DISTRIBUTION WIDTH 14.1 % (11.5-14.5)
[2020-01-29 12:03] LABS: CALCIUM 10.1 mg/dL (8.5-10.1); CREATININE 2.4 mg/dL (0.6-1.0); GFR 19.9; POTASSIUM 3.9 mmol/L (3.5-5.1)
[2020-01-29] MEDS ORDERED: IV NORMAL SALINE 1,000ML 1,000 ML IV ONE ×2 (12:15)
[2020-01-29] MEDS ORDERED: METOCLOPRAMIDE HCL 10 MG/2 ML VIAL. IVP ONE (12:15)
[2020-01-29 12:16] LABS: ALBUMIN 3.5 g/dL (3.4-5.0); ALBUMIN/GLOBULIN RATIO 0.7 (1.0-1.7); MAGNESIUM 2.7 mg/dL (1.8-2.4); TOTAL BILIRUBIN 0.4 mg/dL (0.2-1.0); TOTAL PROTEIN 8.3 g/dL (6.4-8.2)
[2020-01-29 12:34] LABS: AMPHETAMINE/METHAMPHETAMINE NEG (NEG); BARBITURATES NEG (NEG); BENZODIAZEPINES NEG (NEG); CANNABINOIDS NEG (NEG); COCAINE NEG (NEG); METHADONE NEG (NEG); OPIATES NEG (NEG); PHENCYCLIDINE NEG (NEG)
--- NOTE | 2020-01-29 12:36 | PHYS DOC ---
Past History Past Medical History: CAD, Diabetes, Hypertension, Kidney Stones, Stroke (NAYE HERNANDEZ DO) Past Surgical History: Cholecystectomy, Other Additional Past Surgical Histo: 3 stents (NAYE HERNANDEZ DO) Smoking: Non-smoker Alcohol Use: None Drug Use: None (NAYE HERNANDEZ DO) General Adult EDM: Chief Complaint: HYPERGLYCEMIA HPI: HPI: 69 yo F PMH IDDM, HTN and HLD, presents to the ED with complaints of nausea, nonbloody nonbilious vomiting and some mild loose watery diarrhea for the past 2 weeks with associated elevated glucose in the 300s. Patient reports she takes long-acting insulin 14 units every night and then sliding scale insulin 3 times a day with meals. No recent antibiotics or hospital admissions. No history of Covid. Denies any active chest pain, abdominal pain or new back pain. Reports chronic back pain. History is limited based on pt being a poor historian and having the ask the same question multiple times (pt not comfortable with active emesis). EMR was reviewed and in CAD, CVA and nephrolithiasis are listed as her past medical problems-patient denied any known nephrolithiasis to myself. PSH-cholecystectomy. (NAYE HERNANDEZ DO) Review of Systems: Review of Systems: Constitutional: Denies fever or chills Eyes: Denies change in visual acuity HENT: Denies nasal congestion or sore throat Respiratory: Denies cough or shortness of breath Cardiovascular: Denies chest pain or edema GI: Denies abdominal pain, bloody stools or diarrhea : Denies dysuria Musculoskeletal: Denies back pain or joint pain Integument: Denies rash Neurologic: Denies headache, focal weakness or sensory changes Endocrine: Denies polyuria or polydipsia Lymphatic: Denies swollen glands Psychiatric: Denies depression or anxiety (NAYE HERNANDEZ DO) Current Medications: Current Meds: Current Medications Medications (Trade) Dose Ordered Sig/Kacey Start Time Stop Time Status Last Admin Dose Admin Metoclopramide HCl (Reglan Vial) 10 mg 1X ONCE 01/29/20 12:15 01/29/20 12:16 DC 01/29/20 12:18 10 MG Ondansetron HCl (Zofran) 4 mg 1X ONCE 01/29/20 11:45 01/29/20 11:46 DC 01/29/20 11:52 4 MG Sodium Chloride 1,000 ml @ 1,000 mls/hr 1X ONCE 01/29/20 12:15 01/29/20 13:14 (NAYE HERNANDEZ DO) Allergies: Allergies: Allergies Coded Allergies Type Severity Reaction Last Updated Verified Penicillins Allergy Mild 01/29/20 Yes codeine Allergy Mild 01/29/20 Yes (NAYE HERNANDEZ DO) Physical Exam: PE: Constitutional: afebrile, active emesis, HENT: Normocephalic, atraumatic, Eyes: EOMI, conjunctiva normal, no discharge, dry/cracked tongue Neck: Normal range of motion, supple, Cardiovascular: S1/2 present, regular rhythm, tachycardic Lungs & Thorax: Speaking in full sentences, bilateral equal chest rise, no tachypnea or increased work of breathing Abdomen: soft, no tenderness, no rigidity or guarding Skin: Warm, dry, Back: No midline tenderness, no CVA tenderness. [] Extremities: No tenderness, no cyanosis, Neurologic: Alert and oriented X 3, normal motor function, normal sensory function, no focal deficits noted. [] Psychologic: Affect normal, judgement normal, mood normal. [] (NAYE HERNANDEZ DO) Current Patient Data: Labs: Laboratory Tests Test 01/29/20 11:22 01/29/20 11:30 01/29/20 12:14 Glucose (Fingerstick) 324 mg/dL (70-99) H White Blood Count 10.0 x10^3/uL (4.0-11.0) Red Blood Count 4.30 x10^6/uL (3.50-5.40) Hemoglobin 12.7 g/dL (12.0-15.5) Hematocrit 39.9 % (36.0-47.0) Mean Corpuscular Volume 93 fL (79-100) Mean Corpuscular Hemoglobin 30 pg (25-35) Mean Corpuscular Hemoglobin Concent 32 g/dL (31-37) Red Cell Distribution Width 14.1 % (11.5-14.5) Platelet Count 256 x10^3/uL (140-400) Neutrophils (%) (Auto) 83 % (31-73) H Lymphocytes (%) (Auto) 8 % (24-48) L Monocytes (%) (Auto) 8 % (0-9) Eosinophils (%) (Auto) 0 % (0-3) Basophils (%) (Auto) 0 % (0-3) Neutrophils # (Auto) 8.3 x10^3uL (1.8-7.7) H Lymphocytes # (Auto) 0.8 x10^3/uL (1.0-4.8) L Monocytes # (Auto) 0.8 x10^3/uL (0.0-1.1) Eosinophils # (Auto) 0.0 x10^3/uL (0.0-0.7) Basophils # (Auto) 0.0 x10^3/uL (0.0-0.2) Sodium Level 147 mmol/L (136-145) H Potassium Level 3.9 mmol/L (3.5-5.1) Chloride Level 104 mmol/L (98-107) Carbon Dioxide Level 20 mmol/L (21-32) L Anion Gap 23 (6-14) H Blood Urea Nitrogen 52 mg/dL (7-20) H Creatinine 2.4 mg/dL (0.6-1.0) H Estimated GFR (Cockcroft-Gault) 19.9 BUN/Creatinine Ratio 22 (6-20) H Glucose Level 359 mg/dL (70-99) H Calcium Level 10.1 mg/dL (8.5-10.1) Magnesium Level 2.7 mg/dL (1.8-2.4) H Total Bilirubin 0.4 mg/dL (0.2-1.0) Aspartate Amino Transferase (AST) 7 U/L (15-37) L Alanine Aminotransferase (ALT) 14 U/L (14-59) Alkaline Phosphatase 120 U/L (46-116) H Creatine Kinase 16 U/L (26-192) L Troponin I Quantitative < 0.017 ng/mL (0-0.055) RA-Dzw-R-Type Natriuretic Peptide 304 pg/mL (0-124) H Total Protein 8.3 g/dL (6.4-8.2) H Albumin 3.5 g/dL (3.4-5.0) Albumin/Globulin Ratio 0.7 (1.0-1.7) L Lipase 29 U/L (73-393) L Ethyl Alcohol Level < 10 mg/dL (0-10) Urine Opiates Screen Neg (NEG) Urine Methadone Screen Neg (NEG) Urine Barbiturates Neg (NEG) Urine Phencyclidine Screen Neg (NEG) Urine Amphetamine/Methamphetamine Neg (NEG) Urine Benzodiazepines Screen Neg (NEG) Urine Cocaine Screen Neg (NEG) Urine Cannabinoids Screen Neg (NEG) Urine Ethyl Alcohol Neg (NEG) Vital Signs: Vital Signs Date Time Temp Pulse Resp B/P (MAP) Pulse Ox O2 Delivery O2 Flow Rate FiO2 01/29/20 11:15 97.8 120 20 133/64 (87) 97 Room Air (NAYE HERNANDEZ DO) EKG: EKG: Sinus tachycardia at 119 bpm, no axis deviation, QTC 469, T wave inversion V2, no ST elevations or ST depressions small Q waves 3 and aVF, patient with no a ctive chest pain (NAYE HERNANDEZ DO) Radiology/Procedures: Radiology/Procedures: []IMAGING REPORT Signed PATIENT: LEILANI MUÑOZ ACCOUNT: [id number] : 1950 LOCATION: ER AGE: 69 SEX: F EXAM STATUS: REG ER ORD. PHYSICIAN: NAYE HERNANDEZ DO REASON: n/v PROCEDURE: CHEST AP ONLY EXAMINATION: XR CHEST 1V CLINICAL HISTORY: Nausea and vomiting EXAM DATE/TIME: 01/29/2020 12:09 PM COMPARISON: 01/05/2020 FINDINGS: Lines, Tubes, and Devices: None. Cardiomediastinal Silhouette: Normal heart size. Aortic atherosclerotic calcification. Lungs and Pleura: No evidence of focal airspace consolidation or pleural effusion. Pulmonary vasculature unremarkable. Nipple shadow projected over the peripheral left lung base. Bones and Soft Tissues: Degenerative changes of the thoracic spine. 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 IMPRESSION: No evidence of acute cardiopulmonary abnormality or significant interval change.. Electronically signed by: Asim Tsang DO (01/29/2020 12:41 PM) [facility] DICTATED AND SIGNED BY: ASIM TSANG DO DATE: 01/29/20 1239 CC: ALEJANDRO GLASS MD; NAYE HERNANDEZ DO ~MTH0 0 IMAGING REPORT Signed PATIENT: LEILANI MUÑOZ ACCOUNT: [id number] : 1950 LOCATION: ER AGE: 69 SEX: F EXAM STATUS: REG ER ORD. PHYSICIAN: NAYE HERNANDEZ DO REASON: n/v, pyelo? stone? PROCEDURE: CT ABDOMEN PELVIS WO CONTRAST CT abdomen and pelvis without contrast PQRS statement: CT scans at this facility use dose reduction including either automated exposure control, iterative reconstructions, and /or weight based radiation dosing via mA and kV modification when appropriate to reduce radiation dose to as low as reasonably achievable. HISTORY: Abdominal pain. Flank pain. Kidney stones. Abdomen findings: Asymmetric lateral basilar and posterior basal left lower lobe subpleural bridging is groundglass opacities. Lumbar disc disease and facet arthritis with disc bulges, disc ossified and facet spurring. Numerous calcified granulomas of the liver and spleen. Cholecystectomy. Mild atrophy of the pancreas. Adrenal glands unremarkable. Mild distended left extrarenal pelvis perhaps due to a low-grade ureteropelvic junction obstruction. There is moderate renal hydronephrosis renal pelvis and calyces dilated with a renal pelvis diameter of 2 cm perhaps due to a ureteropelvic junction obstruction. No urinary calculi evident. Calcified likely aorta and abdominal arteries. There is diffuse luminal collapse and wall thickening throughout the large no surrounding edema. No bowel obstruction. Appendix is negative. No abdominal fluid. Pelvis findings: Right ovary obscured by surrounding pelvic bowel loops. Left ovary, uterus, bladder and bones are unremarkable. Rectosigmoid luminal collapse and wall thickening and surrounding edema. No pelvic fluid. IMPRESSION: 1. Diffuse luminal collapse and wall thickening throughout the large bowel which could be due to muscle spasm or changes of low-grade colitis. No bowel obstruction. 2. Appendix is negative. 3. No urinary calculi. 4. Moderate right renal hydronephrosis likely due to a ureteropelvic junction obstruction. See above. Electronically signed by: Maame Collins MD (01/29/2020 1:55 PM) [id number] DICTATED AND SIGNED BY: MAAEM COLLINS MD DATE: 01/29/20 1349 CC: ALEJANDRO GLASS MD; NAYE HERNANDEZ DO ~MTH0 0 (NAYE HERNANDEZ DO) Heart Score: Risk Factors: Risk Factors: DM, Current or recent (<one month) smoker, HTN, HLP, family history of CAD, obesity. Risk Scores: Score 0 - 3: 2.5% MACE over next 6 weeks - Discharge Home Score 4 - 6: 20.3% MACE over next 6 weeks - Admit for Clinical Observation Score 7 - 10: 72.7% MACE over next 6 weeks - Early Invasive Strategies (NAYE HERNANDEZ DO) Course & Med Decision Making: Course & Med Decision Making Pertinent Labs and Imaging studies reviewed. (See chart for details) Concern for sepsis secondary to UTI with obstructive uropathy, acute kidney injury, DKA and COVID. CT a/p with new basilar GGO (compared to prior 01/05/20 cta chest/abd/pelvis with negative covid pcr test). AG 23 now 16. Hourly sq lispro dosing at 0.01Ukg/hr and cbgs w/[id number] @ 100cc/kr. BMPs [id number]. Patient requiring transfer for urologic services. Due to Covid pandemic [facility] have been called, but the following are not accepting patients due to lack of hospital beds (resources are so overwhelmed/hospital at maximum capacity that they cannot provide care) include: [facility], [facility] w/urology ([facility], [facility], [place], [place], [facility], [facility] and [facility]. Dr. Gagnon ([facility] hospitalist) agrees with transfer but available for speech assistant with critical care prn. Patient on 1 hour protocol for subcu insulin regiment at 0.05 units/kg/h, as long as glucose is above 150, and anion gap is above 14. Pending labs. No transfer availability at this time. Awaiting [facility] response with repeat labs. Critical Care: Authorized and Performed by: Naye Hernandez DO Total critical care time: approximately 120 minutes Due to a high probability of clinically significant, life threatening deterioration, the patient required my highest level of preparedness to intervene emergently and I personally spent this critical care time directly and personally managing the patient. This critical care time included obtaining a history; examining the patient; pulse oximetry; ventilator management if necessary; ordering and review of studies; arranging urgent treatment with development of a management plan; evaluation of patient's response to treatment; frequent reassessment; discussion with patient/family; and, discussions with other providers. This critical care time was performed to assess and manage the high probability of imminent, life-threatening deterioration that could result in multi-organ failure. It was exclusive of separately billable procedures and treating other patients and teaching time. Please see MDM section and the rest of the note for further information on patient assessment and treatment. (NAYE HERNANDEZ DO) Course & Med Decision Making 1944: Discussed with Dr. Cooper at [facility], discussed the change in creatinine and anion gap. He states he does not feel that she needs transfers possibly lateral transfer. He states he will discuss with his urologist and call back 1999: Dr. Cooper called back and states that they will accept the patient. Urologist thinks this could possibly be due to a congenital abnormality. (PATSY MIRAMONTES MD) Dragon Disclaimer: Dragon Disclaimer: This electronic medical record was generated, in whole or in part, using a voice recognition dictation system. (NAYE HERNANDEZ DO) Departure Departure: Impression: Primary Impression: Sepsis Additional Impressions: DKA (diabetic ketoacidosis) UTI (urinary tract infection) Prerenal renal failure Obstructive uropathy Disposition: 02 DC/TRF OTHER SHORT TERM HOS Admitting Physician: Aric Gagnon (NAYE HERNANDEZ DO) Condition: CRITICAL Referrals: ALEJANDRO GLASS MD (PCP) NAYE HERNANDEZ DO Jan 29, 2020 12:36 PATSY MIRAMONTES MD Jan 29, 2020 19:50
[2020-01-29 12:40] LABS: CLARITY,URINE HAZY; COLOR,URINE YELLOW
[2020-01-29 12:42] LABS: BILIRUBIN,URINE NEG (NEG); GLUCOSE,URINE 500 mg/dL (NEG); NITRITE,URINE NEG (NEG); RBC,URINE OCC /HPF (0-2); UROBILINOGEN,URINE 0.2 mg/dL (0.2 mg/dL)
[2020-01-29 12:43] LABS: BACTERIA,URINE FEW /HPF (0-FEW); SQUAMOUS EPITHELIAL CELL,UR FEW /LPF; WBC,URINE >40 /HPF (0-4); YEAST,URINE PRESENT /HPF
--- NOTE | 2020-01-29 12:44 | RAD ---
EXAMINATION: XR CHEST 1V CLINICAL HISTORY: Nausea and vomiting EXAM DATE/TIME: 01/29/2020 12:09 PM COMPARISON: 01/05/2020 FINDINGS: Lines, Tubes, and Devices: None. Cardiomediastinal Silhouette: Normal heart size. Aortic atherosclerotic calcification. Lungs and Pleura: No evidence of focal airspace consolidation or pleural effusion. Pulmonary vasculat ure unremarkable. Nipple shadow projected over the peripheral left lung base. Bones and Soft Tissues: Degenerative changes of the thoracic spine. Redemonstration of remote ununite d left proximal humerus fracture. IMPRESSION: No evidence of acute cardiopulmonary abnormality or significant interval change.. Electronically signed by: Asim Rosario DO (01/29/2020 12:41 PM) CHRIS
[2020-01-29] MEDS ORDERED: POTASSIUM CHLORIDE 20MEQ 100 ML IV SCH (13:30)
[2020-01-29] MEDS ORDERED: cefTRIAXone SODIUM 1 GM VIAL ONE (13:41)
[2020-01-29] MEDS ORDERED: IV NORMAL SALINE 50ML 50 ML ONE (13:41)
--- NOTE | 2020-01-29 13:58 | RAD ---
ADDENDUM #1 Addendum: As mentioned in the body of the report there is left lower lobe lateral basilar subpleural asymmetric heterogeneous groundglass pulmonary opacity which given its nondependent nature raises the possibility of an infectious or inflammatory process including atypical viral infection. Consider fo llow-up CT imaging in 3 months to document that this resolves. Electronically signed by: Rd Collins MD (01/29/2020 2:10 PM) [id number] ORIGINAL REPORT CT abdomen and pelvis without contrast PQRS statement: CT scans at this facility use dose reduction including either automated exposure cont rol, iterative reconstructions, and /or weight based radiation dosing via mA and kV modification when appropriate to reduce radiation dose to as low as reasonably achievable. HISTORY: Abdominal pain. Flank pain. Kidney stones. Abdomen findings: Asymmetric lateral basilar and posterior basal left lower lobe subpleural bridging is groundglass opacities. Lumbar disc disease and facet arthritis with disc bulges, disc ossified and facet spurring. Numerous calcified granulomas of the liver and spleen. Cholecystectomy. Mild atrophy of the pancreas. Adrenal glands unremarkable. Mild distended left extrarenal pelvis perhaps due to a low-grade ureteropelvic junction obstruction. There is moderate renal hydronephrosis renal pelvis an d calyces dilated with a renal pelvis diameter of 2 cm perhaps due to a ureteropelvic junction obstru ction. No urinary calculi evident. Calcified likely aorta and abdominal arteries. There is diffuse sury mahendra collapse and wall thickening throughout the large no surrounding edema. No bowel obstruction. A ppendix is negative. No abdominal fluid. Pelvis findings: Right ovary obscured by surrounding pelvic bowel loops. Left ovary, uterus, bladder and bones are unremarkable. Rectosigmoid luminal collapse and wall thickening and surrounding edema. No pelvic fluid. IMPRESSION: 1. Diffuse luminal collapse and wall thickening throughout the large bowel which could be due to musc le spasm or changes of low-grade colitis. No bowel obstruction. 2. Appendix is negative. 3. No urinary calculi. 4. Moderate right renal hydronephrosis likely due to a ureteropelvic junction obstruction. See above. Electronically signed by: Rd Collins MD (01/29/2020 1:55 PM) [id number]
[2020-01-29] MEDS ORDERED: POTASSIUM CL 20MEQ-0.45% NACL 1,000 ML IV ONE ×3 (14:00)
[2020-01-29] MEDS ORDERED: POTASSIUM CL 20MEQ D5-0.45NACL 1,000 ML IV ONE (14:00)
[2020-01-29 15:17] LABS: CALCIUM 7.9 mg/dL (8.5-10.1); CREATININE 1.8 mg/dL (0.6-1.0); GFR 27.7; POTASSIUM 3.8 mmol/L (3.5-5.1)
[2020-01-29] MEDS ORDERED: INSULIN LISPRO 300 UNITS/3 ML VIAL. SQ ONE (16:45)
[2020-01-29] MEDS ORDERED: POTASSIUM CHLORIDE 20 MEQ TABLET.ER. PO ONE (18:00)
[2020-01-29] MEDS ORDERED: INSULIN LISPRO 300 UNITS/3 ML VIAL. SQ PRN (18:15)
[2020-01-29 19:34] LABS: CALCIUM 8.2 mg/dL (8.5-10.1); CREATININE 1.7 mg/dL (0.6-1.0); GFR 29.6; POTASSIUM 3.8 mmol/L (3.5-5.1)
--- NOTE | 2020-01-29 19:38 | EKG ---
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
[2020-01-29 20:35] VITALS: BP 122/86
== END 2020-01-29 21:20 | disposition short-term general hospital (02) ==
LOC: ER 11:10
DX: N17.9 Acute kidney failure, unspecified (principal); U07.1 COVID-19; R65.20 Severe sepsis without septic shock; E11.10 Type 2 diabetes mellitus with ketoacidosis without coma; N39.0 Urinary tract infection, site not specified; N13.9 Obstructive and reflux uropathy, unspecified; I25.10 Atherosclerotic heart disease of native coronary artery without angina pectoris; E11.9 Type 2 diabetes mellitus without complications; I10 Essential (primary) hypertension; Z79.899 Other long term (current) drug therapy; Z87.442 Personal history of urinary calculi; Z86.73 Personal history of transient ischemic attack (TIA), and cerebral infarction without residual deficits; Z88.0 Allergy status to penicillin; Z88.5 Allergy status to narcotic agent
CPT/HCPCS: 36415; 71045; 74176; 80048; 80053; 80307; 81001; 82550; 82803; 82947; 83605; 83690; 83735; 83880; 84100; 84484; 85025; 87086; 87426; 93005; 96361; 96365; 96372; 96375; 99291; 99292; C9803; G0480; J0696; J1815; J2405; J2765; J7030; U0003

== ENCOUNTER 2020-08-17 16:57 | Emergency (ER) | payer MEDICAID, MEDICARE ==
[~2020-08-17] VITALS: Ht 157.5 cm; Wt 52.9 kg
[2020-08-17 17:14] VITALS: BP 127/63
--- NOTE | 2020-08-17 17:24 | RAD ---
CT STROKE HEAD W/O History: Reason: aLTERED loc cva s/s / Spl. Instructions: / History: Comparison: December 21, 2010 Technique: Noncontrast CT imaging was performed of the head. Exposure: One or more of the following individualized dose reduction techniques were utilized for thi s examination: 1. Automated exposure control 2. Adjustment of the mA and/or kV according to patient size 3. Use of iterative reconstruction technique. Findings: No intracranial hemorrhage. No mass effect. No hydrocephalus. Bilateral occipital cortical and subco rtical hypoattenuation Imaged orbits are unremarkable. Imaged paranasal sinuses and mastoid air cells are clear. No acute ca lvarial fracture. Impression: 1. No acute intracranial hemorrhage. 2. Bilateral occipital infarcts, most likely chronic although age indeterminate. Recommend MRI to fu rther evaluate. FOR INTERNAL CODING PURPOSES Critical result: Findings discussed with ER clinician at 08/17/2020 5:20 PM. RESULT CODE: (C) Electronically signed by: Jeffery Delaney DO (08/17/2020 5:22 PM) LEXI
[2020-08-17] MEDS ORDERED: HEPARIN for IV BOLUS 10,000 UNIT/10 ML VIAL. ONE (17:33)
[2020-08-17] MEDS: HEPARIN for IV BOLUS 10,000 UNIT/10 ML VIAL. IV ONE (17:45)
--- NOTE | 2020-08-17 18:16 | PHYS DOC ---
Past History Past Medical History: CAD, Diabetes, Hypertension, Kidney Stones, Stroke Past Surgical History: Cholecystectomy, Other Additional Past Surgical Histo: 3 stents Smoking: Non-smoker Alcohol Use: None Drug Use: None Adult General Chief Complaint Chief Complaint: ALTERED MENTAL STATUS [facility] HPI Patient is a [age] year old [sex] who presents with [] Review of Systems Review of Systems Constitutional: Denies fever or chills [] Eyes: Denies change in visual acuity, redness, or eye pain [] HENT: Denies nasal congestion or sore throat [] Respiratory: Denies cough or shortness of breath [] Cardiovascular: No additional information not addressed in HPI [] GI: Denies abdominal pain, nausea, vomiting, bloody stools or diarrhea [] : Denies dysuria or hematuria [] Musculoskeletal: Denies back pain or joint pain [] Integument: Denies rash or skin lesions [] Neurologic: Denies headache, focal weakness or sensory changes [] Endocrine: Denies polyuria or polydipsia [] All other systems were reviewed and found to be within normal limits, except as documented in this note. Current Medications Current Medications Current Medications Medications (Trade) Dose Ordered Sig/Kacey Start Time Stop Time Status Last Admin Dose Admin Heparin Sodium (Porcine) (Heparin Sodium) 4,000 unit 1X ONCE 08/17/20 17:45 08/17/20 17:46 DC Allergies Allergies Allergies Coded Allergies Type Severity Reaction Last Updated Verified Penicillins Allergy Mild 01/29/20 Yes codeine Allergy Mild 01/29/20 Yes Physical Exam Physical Exam Constitutional: Well developed, well nourished, no acute distress, non-toxic appearance. [] HENT: Normocephalic, atraumatic, bilateral external ears normal, oropharynx moist, no oral exudates, nose normal. [] Eyes: PERRLA, EOMI, conjunctiva normal, no discharge. [] Neck: Normal range of motion, no tenderness, supple, no stridor. [] Cardiovascular:Heart rate regular rhythm, no murmur [] Lungs & Thorax: Bilateral breath sounds clear to auscultation [] Abdomen: Bowel sounds normal, soft, no tenderness, no masses, no pulsatile masses. [] Skin: Warm, dry, no erythema, no rash. [] Back: No tenderness, no CVA tenderness. [] Extremities: No tenderness, no cyanosis, no clubbing, ROM intact, no edema. [] Neurologic: Alert and oriented X 3, normal motor function, normal sensory function, no focal deficits noted. [] Psychologic: Affect normal, judgement normal, mood normal. [] Current Patient Data Vital Signs Vital Signs Date Time Temp Pulse Resp B/P (MAP) Pulse Ox O2 Delivery O2 Flow Rate FiO2 08/17/20 17:14 98.1 78 16 127/63 (84) 93 Room Air EKG EKG EKG ordered and interpreted by myself at 1726 hrs. as sinus rhythm at 73 bpm, prolonged QTC at 493 otherwise unremarkable intervals, no axis deviation, there is ST elevation in inferior leads II, 3, aVF with reciprocal ST wave depression in aVL, V2-6 concerning for acute inferior wall STEMI Radiology/Procedures Radiology/Procedures [] Heart Score Risk Factors: Risk Factors: DM, Current or recent (<one month) smoker, HTN, HLP, family histo ry of CAD, obesity. Risk Scores: Risk Factors: DM, Current or recent (<one month) smoker, HTN, HLP, family history of CAD, obesity. Course & Med Decision Making Course & Med Decision Making Pertinent Labs and Imaging studies reviewed. (See chart for details) [] Dragon Disclaimer Dragon Disclaimer This electronic medical record was generated, in whole or in part, using a voice recognition dictation system. Departure Departure: Impression: Primary Impression: STEMI (ST elevation myocardial infarction) Referrals: ALEJANDRO GLASS MD (PCP) SARABJIT PICKARD DO Aug 17, 2020 18:16
--- NOTE | 2020-08-17 18:21 | EKG ---
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
[2020-08-17 18:50] LABS: CALCIUM 8.6 mg/dL (8.5-10.1); CREATININE 1.2 mg/dL (0.6-1.0); GFR 44.2; POTASSIUM 3.5 mmol/L (3.5-5.1)
[2020-08-17 18:56] LABS: BASO # 0.1 x10^3/uL (0.0-0.2); BASO % 1 % (0-3); EOS # 0.2 x10^3/uL (0.0-0.7); EOS % 2 % (0-3); HEMATOCRIT 33.9 % (36.0-47.0); HEMOGLOBIN 11.1 g/dL (12.0-15.5); LYMPH % 11 % (24-48); MEAN CORPUSCULAR HEMOGLOBIN 30 pg (25-35); MEAN CORPUSCULAR HGB CONC 33 g/dL (31-37); MEAN CORPUSCULAR VOLUME 92 fL (79-100); MONO # 0.8 x10^3/uL (0.0-1.1); MONO % 9 % (0-9); NEUT % 77 % (31-73); PLATELET COUNT 301 x10^3/uL (140-400); RED BLOOD COUNT 3.71 x10^6/uL (3.50-5.40); WHITE BLOOD COUNT 9.1 x10^3/uL (4.0-11.0)
[2020-08-17 19:03] LABS: ALBUMIN 3.2 g/dL (3.4-5.0); ALBUMIN/GLOBULIN RATIO 0.9 (1.0-1.7); MAGNESIUM 2.1 mg/dL (1.8-2.4); TOTAL BILIRUBIN 0.4 mg/dL (0.2-1.0); TOTAL PROTEIN 6.7 g/dL (6.4-8.2)
== END 2020-08-17 17:40 | disposition admitted as inpatient to this hospital (09) ==
LOC: ER 16:57
DX: I21.3 ST elevation (STEMI) myocardial infarction of unspecified site (principal); R41.82 Altered mental status, unspecified; E11.9 Type 2 diabetes mellitus without complications; I10 Essential (primary) hypertension; Z88.0 Allergy status to penicillin; Z88.5 Allergy status to narcotic agent; Z90.49 Acquired absence of other specified parts of digestive tract; Z87.442 Personal history of urinary calculi
CPT/HCPCS: 36415; 70450; 80053; 83735; 83880; 84484; 85025; 93005; 96374; 99285; J1644